=== PATIENT | male | born 1940 | race Caucasian/White ===

== ENCOUNTER → 2017-05-14 | Outpatient (CLI) | payer MEDICARE, OTHER ==
--- NOTE | 2017-05-14 11:59 | KCIC ---
MRI right shoulder without contrast dated 05/14/2017 11:00 AM Indication: Right shoulder pain for 6 months , worse with standing , long-term drug therapy limited range of motion Comparison: No comparison is available. Technique: Routine multiplanar multisequence imaging performed. No contrast administered. Findings: Intermediate T2 signal throughout the supraspinatus and infraspinatus portions of the rotator cuff. There is mild articular and bursal surface partial tearing of the anterior supraspinatus footplate, thinning cuff substance by 50 percent thickness or less. No full-thickness tear or cuff retraction. Subscapularis is intact. Mild hypertrophic change of the acromioclavicular joint. No significant undersurface spurring. No significant subacromial/subdeltoid bursal fluid collection. The acromium is type II morphology. Mild increased signal within the substance of the long head biceps tendon proximally. Extra articular portion courses within the bicipital groove. Biceps anchor intact. Mild hypertrophic change of the glenohumeral joint. Mild thinning of the glenoid articular cartilage. No full-thickness cartilage defect. The glenoid labrum is grossly intact. No displaced labral tear or para labral cyst. No joint effusion or loose body. Suprascapular and spinoglenoid notches are clear. No significant muscle edema or muscle atrophy. IMPRESSION: 1. Mild rotator cuff tendinopathy with no evidence of full-thickness tear. 2. Mild proximal biceps tendinosis. 3. Mild AC joint arthropathy. Electronically signed by: Farooq Matt MD (05/14/2017 11:56 AM) [email or web address]
== END | disposition home or self-care (01) ==
LOC: KCIC MRI 10:35
PROVIDERS: ATTEND Family Medicine
DX: M25.511 Pain in right shoulder (principal); M12.811 Other specific arthropathies, not elsewhere classified, right shoulder; Z79.899 Other long term (current) drug therapy
CPT/HCPCS: 73221

== ENCOUNTER → 2017-06-17 | Outpatient (CLI) | payer MEDICARE, OTHER ==
--- NOTE | 2017-06-17 11:02 | KCIC ---
MRI Cervical Spine Without Contrast History: Cervical radiculopathy, pain into the right shoulder and numbness in the right arm and hand Technique: Multiplanar, multi sequential noncontrast MR imaging was performed of the cervical spine. Comparison: January 08, 2016 Findings: There is some motion degradation, limits accurate evaluation of the neural foramina. Cervical vertebral body stature is maintained. There is again multilevel grade 1 anterior spondylolisthesis at C3-4, C4-5, C5-6, C6-7, C7-T1. There is [id number] degenerative disc disease C4-5, mild endplate edema at this level likely reactive/degenerative in etiology. There is mild degenerative disc disease C3-4, C5-C6, C6-7, C7-T1. There is no new abnormality of the cervical medullary junction. There is mild levoscoliosis of the cervical spine. C2-C3: Spinal canal and neural foramina are overall adequate. There are some fused posterior central osteophytes. C3-C4: There is again very shallow extrusion right paracentral region. Central canal is minimally narrowed to 9 to 10 mm. There is bilateral facet degenerative change. There is right uncovertebral degenerative change. Left neural foramen is overall adequate. There is again at least moderate narrowing of the right neural foramen. C4-C5: There is buckling of the ligamentum flavum. There is again minimal posterior bulge. Central canal is again narrowed to about 8 mm. There is bilateral facet degenerative change. There is likely at least mild right and [id number]-wl-rhkvbbrt left neural foramina compromise. C5-C6: There is buckling of the ligamentum flavum. There is a shallow posterior central protrusion. Central canal is minimally narrowed to approximately 9 mm. There is bilateral facet degenerative change greater on the left. Neural foramina are not significantly narrowed. C6-C7: Central canal is borderline 10 mm. There is facet degenerative change. Right neural foramen is adequate, likely mild narrowing of the left neural foramen. C7-T1: Spinal canal is adequate. There is uncovertebral degenerative change, also facet degenerative change. There is likely [id number] narrowing of the right neural foramen, left neural foramen not significantly narrowed. Impression: 1. There is multilevel mild abnormal alignment as stated, multilevel facet degenerative change. 2. There is mild spinal stenosis C3-4 to C5-C6. 3. There is multilevel facet and uncovertebral degenerative change, suspected multilevel neural foramina compromise as stated although limited accurate evaluation due to motion. Neural foramina compromise is likely greatest on the right at C3-C4 and C7-T1 and on the left at C4-C5. 4. There is degenerative disc disease greatest at C4-5. Electronically signed by: Dexter Schwartz MD (06/17/2017 10:59 AM) [facility]
== END | disposition home or self-care (01) ==
LOC: KCIC MRI 09:47
PROVIDERS: ATTEND Family Medicine
DX: M47.22 Other spondylosis with radiculopathy, cervical region (principal); M50.123 Cervical disc disorder at C6-C7 level with radiculopathy; M50.122 Cervical disc disorder at C5-C6 level with radiculopathy; M50.121 Cervical disc disorder at C4-C5 level with radiculopathy
CPT/HCPCS: 72141

== ENCOUNTER → 2018-05-13 | Outpatient (CLI) | payer MEDICARE, OTHER | END | disposition home or self-care (01) | LOC: KCIC MRI 12:58 | DX: M48.05 Spinal stenosis, thoracolumbar region (principal); M51.36 Other intervertebral disc degeneration, lumbar region; M43.27 Fusion of spine, lumbosacral region; M43.5X6 Other recurrent vertebral dislocation, lumbar region; M47.896 Other spondylosis, lumbar region; M25.78 Osteophyte, vertebrae | CPT/HCPCS: 72148 ==

== ENCOUNTER → 2018-06-02 | Outpatient (CLI) | payer MEDICARE, OTHER ==
--- NOTE | 2018-06-02 11:08 | KCIC ---
MR of the left shoulder Indication: Left shoulder pain. Injury over one month ago. Pain and limited range of motion. Technique: Standard multiplanar sequences are obtained. Findings: Artifact: No significant image degradation. Acromioclavicular joint: Degenerative, with mild undersurface mass effect. Rotator cuff: * Supraspinatus-infraspinatus tendon: Linear full-thickness on retracted tear of the anterior supraspinatus tendon. Measures 15 mm AP diameter. Small focus of signal void at the infraspinatus tendon attachment compatible with calcium hydroxyapatite. * Subscapularis tendon: Mild partial tear * Muscle bulk: Mild atrophy * Subacromial subdeltoid bursa: Small effusion. Fluid: No significant glenohumeral effusion. Glenohumeral cartilage: No acute defect or advanced DJD. Labrum: No evidence of detachment. Biceps tendon: Tendinosis. Bones: No lesion or acute fracture. Soft tissue: Mild fluid along the anterior shoulder, anterior to the subscapularis. This may be dissecting from the subdeltoid bursa. Impression: 1. Small linear nodular retracted full-thickness rotator cuff tear at the anterior supraspinatus tendon. Mild partial subscapularis tendon tear. 2. Mild fluid in the subdeltoid bursa. Electronically signed by: Farooq Gray MD (06/02/2018 11:05 AM) [facility]
== END | disposition home or self-care (01) ==
LOC: KCIC MRI 08:20
PROVIDERS: ATTEND Family Medicine
DX: S46.812A Strain of other muscles, fascia and tendons at shoulder and upper arm level, left arm, initial encounter (principal); M75.112 Incomplete rotator cuff tear or rupture of left shoulder, not specified as traumatic; M25.412 Effusion, left shoulder; M62.512 Muscle wasting and atrophy, not elsewhere classified, left shoulder; X58.XXXA Exposure to other specified factors, initial encounter; Y93.89 Activity, other specified; Y92.89 Other specified places as the place of occurrence of the external cause; Y99.8 Other external cause status
CPT/HCPCS: 73221

== ENCOUNTER → 2019-01-19 | Outpatient (CLI) | payer MEDICARE, OTHER ==
[~2019-01-19] MED LIST: CELE100C PO; DOXY100C2 PO; METO25TA2 PO; NAPR220C4 PO; NITR100C PO; ZOLP5TAB PO
--- NOTE | 2019-01-19 15:21 | KCIC ---
MRI of the lumbar spine without contrast 01/19/2019 CLINICAL HISTORY: Low back pain worsening with walking. History of previous lumbar spine surgery. TECHNIQUE: Unenhanced T1-weighted and T2-weighted sagittal and axial recovery sagittal images of the lumbar spine were obtained. FINDINGS: Comparison study is dated 05/13/2018. Very mild S-shaped curvature of the thoracolumbar spine is seen. Mild to moderate retrolisthesis of L2 in relation L3 is noted. The patient is post laminectomy and fusion using pedicle screws and stabilizing rods extending from L4 to S1. Bone graft material seen within the L4-5 disc space. Degenerative signal changes and loss of height are seen involving the L1-2, L2-3, L3-4 and L5-S1 discs. Degenerative signal changes are seen within the marrow surrounding all the disks of the lumbar spine. The conus medullaris is normal morphology, position, and signal characteristics. A 2.8 cm rounded high signal intensity lesion is seen involving the lower pole the left kidney on the T2-weighted images. A 1 cm rounded high signal intensity lesion is seen involving the superior pole the right kidney on the T2-weighted images. These likely represent cysts. At the T11-12 disc space is a mild generalized disc bulge. Degenerative changes are seen involving the facet joints bilaterally. These findings result in mild central spinal canal stenosis without evidence of cord impingement. No neural foraminal stenosis is seen. At the T12-L1 disc space there is a mild to moderate generalized disc bulge. Superimposed on this disc bulge is a right paracentral focal disc protrusion. This measures 3.5 mm in AP diameter. Degenerative changes are seen involving the facet joints bilaterally. There is moderate ligamentum flavum hypertrophy bilaterally. These findings when combined result in mild to moderate right greater than left central spinal canal stenosis. No neural foraminal stenosis is seen. At the L1-2 disc space there is a moderate generalized disc bulge. This is eccentric to the left. Degenerative changes are seen involving the facet joints bilaterally. There is moderate ligamentum flavum hypertrophy bilaterally. Small facet joint effusions are seen. These findings when combined result in moderate to severe left greater than right central spinal canal stenosis. Mild bilateral neural foraminal stenosis is seen. At the L2-3 disc space there is a moderate generalized disc bulge. The patient appears to be post left hemilaminotomy. Degenerative changes are seen involving the facet joints bilaterally. There is mild to moderate right ligamentum flavum hypertrophy. These findings when combined result in mild to moderate right greater than left central spinal canal stenosis. Mild to moderate right greater than left neural foraminal stenosis is seen. At the L3-4 disc space is a moderate generalized disc bulge. Degenerative changes are seen involving the facet joints bilaterally. There is moderate ligamentum flavum hypertrophy bilaterally. These findings when combined result in moderate to severe central spinal canal stenosis. Mild to moderate right greater than left neural foraminal stenosis is seen. At the L4-5 level, the patient is post left hemilaminotomy. Degenerative changes are seen involving the facet joints bilaterally. These findings do not result in significant central spinal canal or neural foraminal stenosis. At the L5-S1 disc space degenerative changes are seen involving the facet joints bilaterally. These findings do not result in significant central spinal canal or neural foraminal stenosis. Since the previous examination there has been no significant interval change. IMPRESSION: 1. Postsurgical changes are seen as outlined above. 2. The changes of degenerative disc disease are seen throughout the lower thoracic and throughout the lumbar spine. These findings result in multilevel central spinal canal and neural foraminal stenosis of varying severity as discussed above. Electronically signed by: Nnamdi aMrr MD (01/19/2019 3:17 PM) [facility]
== END | disposition home or self-care (01) ==
LOC: KCIC MRI 08:59
PROVIDERS: ATTEND Nurse Practitioner Family
DX: M51.16 Intervertebral disc disorders with radiculopathy, lumbar region (principal); M51.34 Other intervertebral disc degeneration, thoracic region; M48.05 Spinal stenosis, thoracolumbar region; M51.24 Other intervertebral disc displacement, thoracic region
CPT/HCPCS: 72148

== ENCOUNTER → 2019-02-21 | Outpatient (CLI) | payer MEDICARE, OTHER ==
[~2019-02-21] MED LIST changes: +IOHEXOL 180 MG/ML 10 ML VIAL. ONE; +methylPREDNISolone ACETATE 40 MG/ML VIAL. ONE; +methylPREDNISolone ACETATE 80 MG/ML VIAL. ONE
--- NOTE | 2019-02-22 04:41 | PAIN ---
DATE OF SERVICE: 02/21/2019 INITIAL CONSULTATION FOR PAIN CLINIC CHIEF COMPLAINT: Low back and bilateral lower extremity pain. HISTORY OF PRESENT ILLNESS: This is a 78-year-old male who presents with history of pain in the low back for many years. The patient reports it is worse over the past year or so. He has had lumbar surgery in 2007 and reports the pain was relieved fairly significantly at that time but it is returning now over the past 2 years or so, much worse over the past 1 year. The patient reports it is worse with walking, standing, change in positions, pain in the low back radiating to posterior gluteus, posterior thighs, more on the left than the right. The patient reports it is becoming more constant, more sharp and stabbing with some shooting pain in the legs, is mainly in the low back on the left side, it is getting worse at night, it wakes him from sleep at least once or twice a night, does not affect her bowel or bladder control but does affect his ability to walk. He is not using any assistive devices, however. The patient reports he has had physical therapies and chiropractic treatment. Does exercises on his own and still does those. He takes Aleve as well as Celebrex, both of which decrease the pain moderately. The physical therapy he has had in the past, has been helpful but nothing recently. He is doing exercises on his own, which is keeping things limber he feels but is not decreasing the pain significantly. The patient reports no new motor or sensory loss but significant fatigability in both the legs, especially on the left side with ambulation. The patient did have MRI scan of the lumbar spine dated 01/19/2019 showing post-surgical changes, degenerative disk disease throughout the lower thoracic and throughout the lumbar spine resulting in multilevel central spinal canal stenosis and neural foraminal stenosis of varying severity throughout the L1-L2, L2-L3, L3-L4 level and L4-L5 levels. The patient rates his disability rate from 0-10, 10 being the worst, is a 7 with family home responsibilities, 6 with recreation and 0 in all other categories social activity, occupational activities and sexual behavior, self-care and life support activities. PAST MEDICAL HISTORY: Significant for hearing loss with bilateral hearing aids, irregular heart rhythm, atrial fibrillation, history difficulty urinating with self catheterization and arthritis. PAST SURGICAL HISTORY: Previous surgeries include bilateral cataract extraction, prostate surgery and lumbar fusions with instrumentation in 2008. CURRENT MEDICATIONS: Include Aleve, Celebrex, Toprol, Ambien, doxycycline and nitrofurantoin. ALLERGIES: The patient is allergic to CIPRO and LEVAQUIN. FAMILY HISTORY: Significant for no major medical problems or conditions that he is aware of. SOCIAL HISTORY: The patient does not drink alcohol, does not smoke, does not use any illegal, illicit or recreational drugs. He is and lives with his spouse and lives locally in [place], [place]. Reports he is currently retired. REVIEW OF SYSTEMS: The patient's review of systems is positive for those items mentioned in history of present illness. All systems reviewed and otherwise negative. It is complete, full and well documented on the patient's chart. PHYSICAL EXAMINATION: VITAL SIGNS: The patient's blood pressure is 125/62, pulse is 57, respirations are 18 and temperature 97.6 degrees Fahrenheit. Height is 5 feet 8 inches and weight is 212 pounds. GENERAL: The patient is awake, alert, oriented, appropriate and very pleasant demeanor. HEENT: Shows normocephalic and atraumatic. Extraocular movements are intact and symmetrical. Oral cavity: Mucous membranes moist and pink. Dentition is intact. NECK: Shows anterior throat supple without palpable lymphadenopathy noted. Neck shows full rotational motion of the cervical spine without significant difficulty or pain reported. The patient's back shows normal appearing thoracic kyphosis and flattening of the lumbar lordotic curvature with well-healed surgical scarring, which is fairly extensive in the lumbar spine. Paraspinous muscle shows symmetrical on inspection. On palpation shows some moderate tenderness diffusely in the low lumbar distribution only. The upper, middle and lower distribution are firm but without significant tenderness. The patient has some limitation in extension but good forward flexion, right and left lateral rotation is somewhat limited, but no pain with any of these maneuvers. The patient shows no tenderness over the sacrum or sacroiliac regions or the spinous processes above the surgical scar. EXTREMITIES: The patient's lower extremities show deep tendon reflexes at 1+ in the patellar and tendo-calcaneus tendons are equal. Motor exam is strong with equal at a 4 on a scale 5 and symmetrical with dorsiflexion, extension, quadriceps and hamstring flexion both right and left. Straight leg raise noted to be negative for reproduction of any radicular symptoms. Gaenslen's and Kenroy's maneuvers are negative bilaterally as well. The patient's lower extremities are warm and dry to touch, equal in color and appearance. Peripheral pulses are 1+ posterior tibia. No peripheral edema is noted bilaterally. The patient is able to stand, stand on his toes without significant difficulty or loss of balance, walks with a normal appearing gait, slightly shuffling but does not appear to favor the right or left lower extremity significantly, not using any assistive device to ambulate. SKIN: The patient's skin shows warm and dry, good turgor. No edema. No sores or rashes throughout. IMPRESSION: 1. This is a 78-year-old male with long history of low back, bilateral lower extremity pain, worse on the left than the right in a radicular fashion. 2. MRI scan of the lumbar spine as noted. 3. Previous lumbar laminectomy with fusion for atrial fibrillation. 4. Arthritis. PLAN: Options were discussed with the patient including conservative medical management, continued physical therapy, interventional technique. He would like to pursue interventional techniques. We discussed a lumbar epidural steroid injection using description as well as anatomical models to describe the procedure. Risks were then discussed including, but not limited to bleeding, infection, possibility of epidural hematoma, subsequent neurological compromise, dural puncture, headaches, spinal cord and/or nerve damage, side effects of steroid medication and poor results regarding pain control. The patient understands and wished to proceed. The patient will return to the clinic in approximately 2 weeks for followup, was counseled as to return appointment, activity level and side effects to be aware of. DIAGNOSES: Lumbar radiculopathy with lumbar degenerative disk disease, lumbar spinal stenosis and post-lumbar laminectomy syndrome. PROCEDURE: Lumbar epidural steroid injection, translaminar approach, L5-S1 level using C-arm fluoroscopic guidance under sterile prep and drape using local anesthetic. MEDICATION INJECTED: A total of 120 mg of Depo-Medrol plus 10 mL of preservative-free normal saline and 2 mL of Isovue for contrast. CONDITION AT DISCHARGE: Stable. The patient tolerated the procedure well and had no complications. CITLALLI NGUYEN MD DR: GALILEA/garfield JOB#: [id number] / [id number] KELSEA Higgins MD
== END | disposition home or self-care (01) ==
LOC: PNCL 11:06
PROVIDERS: ATTEND Anesthesiology
DX: M51.16 Intervertebral disc disorders with radiculopathy, lumbar region (principal); M48.061 Spinal stenosis, lumbar region without neurogenic claudication; M96.1 Postlaminectomy syndrome, not elsewhere classified; M19.90 Unspecified osteoarthritis, unspecified site; I48.91 Unspecified atrial fibrillation; Z98.1 Arthrodesis status; H91.8X3 Other specified hearing loss, bilateral; Z98.42 Cataract extraction status, left eye; Z98.41 Cataract extraction status, right eye; Z96.1 Presence of intraocular lens; Z98.890 Other specified postprocedural states; Z79.899 Other long term (current) drug therapy; Z88.1 Allergy status to other antibiotic agents
CPT/HCPCS: 62323; J1030; J1040; Q9965

== ENCOUNTER → 2019-03-22 | Outpatient (CLI) | payer MEDICARE, OTHER ==
--- NOTE | 2019-03-22 11:27 | PAIN ---
DATE OF SERVICE: 03/22/2019 PROGRESS NOTE FOR PAIN CLINIC DIAGNOSES: Lumbar radiculopathy with lumbar spinal stenosis, lumbar degenerative disk disease and post-lumbar laminectomy syndrome. HISTORY OF PRESENT ILLNESS: The patient is a 78-year-old male who returns for followup status post lumbar epidural steroid injection x 1. The patient reports a 100% improvement for the first 2 weeks. He has increased his activity with greater ease and comfort, walking greater distances, traveling with greater ease and comfort. The pain is returning now but not near to his baseline. The patient reports it is in the low back and bilateral posterior gluteus and posterior thighs, mainly across the low back and more noticeable with standing, walking, still does not awaken him from sleep at night. The patient reports it is a 7 on a scale of 10 at its worst over the past week, 7 on average and 0 at its least and is 0 this morning. The patient reports no new motor or sensory deficits and no new bowel or bladder incontinence or other complaints. PHYSICAL EXAMINATION: VITAL SIGNS: The patient's blood pressure is 123/59, pulse is 71, respirations are 18 and temperature 97.6 degrees Fahrenheit. Height is 5 feet 8 inches and weight is 206 pounds. GENERAL: The patient is awake, alert, oriented, appropriate and very pleasant demeanor. HEENT: Head shows normocephalic and atraumatic. Extraocular movements intact and symmetrical. Oral cavity: Mucous membranes moist and pink. Dentition is intact. NECK: Shows anterior throat supple without palpable lymphadenopathy noted. Swallow reflex symmetrical. CHEST: Shows normal with inspection. Breath sounds clear to auscultation bilaterally. HEART: Shows S1 and S2 clear. No murmurs auscultated. ABDOMEN: Soft, nontender and nondistended. BACK: Shows spine grossly in the midline. Slight exaggeration of the thoracic kyphosis and some minor flattening of lumbar lordotic curvature. Well-healed surgical scarring noted in the lumbar distribution. Lumbar paraspinous muscle shows symmetrical on inspection, with palpation shows some moderate tenderness but only diffusely in the low lumbar distribution without radiation. The patient has good rotational motion of the lumbar spine, both laterally as well as extension and flexion without significant pain reported. EXTREMITIES: Lower extremities show deep tendon reflexes 1+ in the patellar and tendo-calcaneus tendons. Motor exam is approximately 4 on a scale of 5, but equal and symmetrical with dorsiflexion and extension bilaterally. Options were discussed with the patient. The patient's old chart was reviewed as well as his current medication regimen and updated. Current review of systems updated today as well. We will proceed with a second in the series of lumbar epidural steroid injection today with fluoroscopic guidance. Risks were again discussed including, but not limited to bleeding, infection, possibility of epidural hematoma, subsequent neurological compromise, dural puncture, headaches, spinal cord and/or nerve damage, side effects of steroid medication and poor results regarding pain control. The patient understands and wished to proceed. The patient will return to the clinic in approximately 2 weeks for followup, was counseled as to return appointment, activity level and side effects to be aware of. DIAGNOSES: Lumbar radiculopathy with lumbar degenerative disk disease, lumbar spinal stenosis and post-lumbar laminectomy syndrome. PROCEDURE: Lumbar epidural steroid injection, translaminar approach, L5-S1 level using C-arm fluoroscopic guidance under sterile prep and drape using local anesthetic. MEDICATION INJECTED: A total of 120 mg Depo-Medrol plus 10 mL of preservative-free normal saline and 2 mL of contrast. CONDITION AT DISCHARGE: Stable. The patient tolerated the procedure well and had no complications. CITLALLI NGUYEN MD DR: GALILEA/garfield JOB#: [id number] / [id number]
== END ==
LOC: PNCL 08:51
PROVIDERS: ATTEND Anesthesiology
DX: M51.16 Intervertebral disc disorders with radiculopathy, lumbar region (principal); M48.061 Spinal stenosis, lumbar region without neurogenic claudication; M96.1 Postlaminectomy syndrome, not elsewhere classified
CPT/HCPCS: 62323; J1030; J1040; Q9965

== ENCOUNTER → 2019-06-01 | Outpatient (CLI) | payer MEDICARE, OTHER ==
[~2019-06-01] MED LIST changes: -IOHEXOL 180 MG/ML 10 ML VIAL. ONE; -methylPREDNISolone ACETATE 40 MG/ML VIAL. ONE; -methylPREDNISolone ACETATE 80 MG/ML VIAL. ONE
--- NOTE | 2019-06-01 17:20 | KCIC ---
STUDY: MRI of the left shoulder without contrast INDICATION: Left shoulder injury. Pain and limited range of motion. COMPARISON: Left shoulder MRI 06/02/2018 TECHNIQUE: Multiplanar MR imaging of the left shoulder performed without intravenous or intra-articular contrast. FINDINGS: AC joint: Advanced AC joint arthrosis which has worsened from the prior with capsular hypertrophy, articular surface remodeling and surrounding marrow and soft tissue edema. Subacromial subdeltoid bursitis is also present. Rotator cuff: Large full-thickness tear of the supraspinatus extending to the supraspinatus/infraspinatus junction with tendon retraction approximately 3 cm medial to the footprint. Severely tendinopathic far anterior supraspinatus fibers which may remain only partially attached. Tendinosis and thinning of the infraspinatus with some superimposed interstitial tearing extending to the myotendinous junction. The teres minor is intact. Subscapularis tendinosis without high-grade tear. Edema tracking into the supraspinatus muscle belly in keeping with acute/subacute full-thickness tear as described. There is mild supraspinatus atrophy. Musculature bulk is otherwise maintained. Labrum: Tearing of the superior to posterior/superior labrum. Long head biceps tendon: The long head biceps tendon is not visualized within the joint space or bicipital groove compatible with complete tearing and retraction. The tendon stump is seen approximately 5.4 cm caudal to the humeral head, image 13 series 6. Cartilage: No full-thickness chondral defect seen at the medial humeral head or glenoid. The superior humeral head cartilage is not well evaluated due to adjacent fluid signal. Bones: No acute fracture. No aggressive marrow signal abnormality. Miscellaneous: Moderate volume elbow joint effusion. Fluid distention of the long head biceps tendon sheath. No axillary adenopathy. Impression: 1. Large full-thickness supraspinatus tear extending to the junctional fibers with only some thinned and severely tendinopathic fibers potentially remaining partially attached to the anterior footprint. Tendinopathy of the torn tendon stump which is displaced medially from the footprint approximately 3 cm. Mild supraspinatus atrophy as well as muscular edema in keeping with the acute/subacute nature of the tear. 2. Thinned but intact infraspinatus with some interstitial tearing extending to the myotendinous junction on a background of tendinosis. The teres minor is intact. Subscapularis tendinosis without high-grade tear. 3. Complete long head biceps tendon tear which is retracted within the bicipital groove 4. Degenerative labral tearing from posterior to posterior/superior. 5. Moderate volume shoulder joint effusion as well as findings of subacromial subdeltoid bursitis. 6. Advanced AC joint arthrosis which has worsened since the 06/02/2018 comparison. Electronically signed by: MARIA ESTHER MEADOWS MD (06/01/2019 5:17 PM) [facility]
== END | disposition home or self-care (01) ==
LOC: KCIC MRI 13:35
PROVIDERS: ATTEND Family Medicine
DX: S46.112A Strain of muscle, fascia and tendon of long head of biceps, left arm, initial encounter (principal); S46.812A Strain of other muscles, fascia and tendons at shoulder and upper arm level, left arm, initial encounter; M19.012 Primary osteoarthritis, left shoulder; M89.39 Hypertrophy of bone, multiple sites; M25.412 Effusion, left shoulder; M75.52 Bursitis of left shoulder; X58.XXXA Exposure to other specified factors, initial encounter; Y93.89 Activity, other specified; Y92.89 Other specified places as the place of occurrence of the external cause; Y99.8 Other external cause status
CPT/HCPCS: 73221

== ENCOUNTER → 2019-06-07 | Outpatient (CLI) | payer MEDICARE, OTHER ==
[~2019-06-07] MED LIST changes: +IOHEXOL 180 MG/ML 10 ML VIAL. ONE; +methylPREDNISolone ACETATE 40 MG/ML VIAL. ONE; +methylPREDNISolone ACETATE 80 MG/ML VIAL. ONE
--- NOTE | 2019-06-07 23:56 | PAIN ---
DATE OF SERVICE: 06/07/2019 PROGRESS NOTE FOR PAIN CLINIC DIAGNOSES: Lumbar radiculopathy with lumbar degenerative disk disease, lumbar spinal stenosis and post-lumbar laminectomy syndrome. HISTORY OF PRESENT ILLNESS: The patient is a 78-year-old male, who returns for followup status post lumbar epidural steroid injection x 2, most recently 03/22/2019. The patient did very well, about 80% improvement in his low back pain. The patient reports it is a little worse on the right side now than the left, but he has been very active, increasing his distance walking, lifting items, traveling with greater ease and comfort. The patient reports he feels that he "overdid it" with some of his activity, but the pain is still very manageable. The patient reports he is sleeping fairly well at night, it does not awaken him from sleep at least night, he does take Ambien for sleep as well. The patient reports his pain is in the last week has been a 9 on a scale of 10 at its worst, 7 on average, 4 at its least and is a 4 today. The patient reports it is stabbing, aching, sharp in the low back, slightly more on the right than the left at this time, but present bilaterally. The patient reports no new motor or sensory deficits, no new bowel or bladder incontinence, occasional radiation to the lower extremities now, but only very infrequently in the posterior gluteus and posterior thighs, again worse on the right. PHYSICAL EXAMINATION: VITAL SIGNS: The patient's blood pressure 132/60, pulse 67, respirations 18, temperature 97.5 degrees Fahrenheit, height is 5 feet 8 inches, weight is 212 pounds. GENERAL: The patient is awake, alert, oriented, appropriate, very pleasant demeanor. HEENT: Shows normocephalic, atraumatic. Extraocular movements are intact and symmetrical. Oral Cavity: Mucous membranes moist and pink; dentition is intact. NECK: Shows anterior throat supple without palpable lymphadenopathy noted. Swallow reflex symmetrical. CHEST: Shows normal on inspection. Breath sounds clear to auscultation bilaterally. HEART: Shows S1, S2 clear. No murmurs auscultated. ABDOMEN: Soft, nontender and nondistended. No palpable organomegaly is noted. No rebound or guarding demonstrated. BACK: Shows spine grossly in the midline, normal-appearing thoracic kyphosis, some minor flattening of lumbar lordotic curvature and well-healed surgical scarring noted. Lumbar paraspinous musculature shows symmetrical on inspection, on palpation shows some moderate tenderness throughout the upper, middle and lower distribution of paraspinous muscles bilaterally without radiation. The patient shows good rotational motion of the lumbar spine, both laterally as well as extension and flexion, without significant pain reported. EXTREMITIES: Lower extremities show deep tendon reflexes 1+ in the patellar and tendo-calcaneus tendons. Motor exam is approximately 4 on a scale of 5, but equal and symmetrical bilaterally. Peripheral pulses are 1+, posterior tibial. No peripheral edema is noted bilaterally. Options were discussed with the patient. The patient's old chart was reviewed as his current medication regimen updated. Current review of systems updated today as well. We will proceed with a third in a series of lumbar epidural steroid injection today with fluoroscopic guidance. Risks were again discussed including, but not limited to bleeding, infection, possibility of epidural hematoma, subsequent neurologic compromise, dural puncture, headaches, spinal cord and/or nerve damage, side effects of steroid medication and poor results regarding pain control. The patient understands and wished to proceed. The patient will return to the clinic in approximately 2 weeks for followup. He was counseled on return appointment, activity level and side effects to be aware of. DIAGNOSES: Lumbar radiculopathy with lumbar degenerative disk disease and lumbar spinal stenosis and post-lumbar laminectomy syndrome. PROCEDURE: Lumbar epidural steroid injection, translaminar approach, L5-S1 level, using C-arm fluoroscopic guidance under sterile prep and drape using local anesthetic. MEDICATION INJECTED: A total of 120 mg Depo-Medrol plus 10 mL of preservative-free normal saline and 2 mL of contrast. CONDITION AT DISCHARGE: Stable. The patient tolerated the procedure well, had no complications. CITLALLI NGUYEN MD DR: GALILEA/garfield JOB#: [id number] / [id number]
== END ==
LOC: PNCL 13:28
PROVIDERS: ATTEND Anesthesiology
DX: M51.16 Intervertebral disc disorders with radiculopathy, lumbar region (principal); M48.061 Spinal stenosis, lumbar region without neurogenic claudication; M96.1 Postlaminectomy syndrome, not elsewhere classified
CPT/HCPCS: 62323; J1030; J1040; Q9965

== ENCOUNTER → 2019-08-24 | Outpatient (CLI) | payer MEDICARE, OTHER ==
[~2019-08-24] MED LIST changes: +FINA1TAB3 PO
--- NOTE | 2019-08-24 10:33 | PAIN ---
DATE OF SERVICE: 08/24/2019 PROGRESS NOTE FOR PAIN CLINIC DIAGNOSES: Lumbar radiculopathy with lumbar degenerative disk disease and lumbar spinal stenosis and post-lumbar laminectomy syndrome. HISTORY OF PRESENT ILLNESS: The patient is an 79-year-old male who returns for followup status post lumbar epidural steroid injections x 3, last seen 06/07/2019. The patient did very well with about 80% improvement for the first 2 months. The patient reports the pain is returning now in the low back into the right greater than left lower extremity, but present bilaterally, posterior gluteus, posterior thighs, and posterior calves. The patient reports he has increased his distance walking, doing work activities, household activities with much greater ease and comfort, sleeping better at night, does not awaken him from sleep still. The patient reports the pain is returning now in the low back and legs as a sharp pain in the back, tight as well, on and off in intensity, radiating with activity only. The patient reports it is better with sitting or lying down. No new motor or sensory deficits, no new bowel or bladder incontinence or other complaints. The patient's pain rating is over the past week, a 9 on a scale of 10 at its worst, 7 on average, 4 at its least and is a 4 today. PHYSICAL EXAMINATION: VITAL SIGNS: The patient's blood pressure is 119/65, pulse 68, respirations 16, temperature 97.9 degrees Fahrenheit, height is 5 feet 8 inches, weight is 210 pounds. GENERAL: The patient is awake, alert, oriented, appropriate, very pleasant demeanor. HEENT: Shows normocephalic, atraumatic. Extraocular movements are intact and symmetrical. Oral cavity: Mucous membranes moist and pink. Dentition is intact. NECK: Shows anterior throat supple without palpable lymphadenopathy noted. Swallow reflex symmetrical. CHEST: Shows normal on inspection. Breath sounds are clear to auscultation bilaterally. HEART: Shows S1, S2 clear. No murmurs auscultated. ABDOMEN: Soft, nontender, nondistended. No palpable organomegaly is noted. No rebound or guarding demonstrated. BACK: Shows spine grossly in the midline. Normal appearing thoracic kyphosis and flattening of lumbar lordotic curvature with well-healed surgical scarring noted. Lumbar paraspinous muscle shows symmetrical on inspection, on palpation shows some moderate tenderness diffusely, but only diffusely without significant radiation. The patient has good rotational motion of lumbar spine, both laterally as well extension and flexion without difficulty. EXTREMITIES: Lower extremities show deep tendon reflexes 1+ in the patellar and tendo calcaneus tendons. Motor exam is approximately 4 on a scale of 5, but equal and symmetrical dorsiflexion, extension, quadriceps and hamstring flexion. Peripheral pulses are 1+ posterior tibia. No peripheral edema is noted. Options were discussed with the patient. The patient's old chart was reviewed as his current medication regimen updated. Current review of systems updated today as well. We will proceed with a first in the series of lumbar epidural steroid injection today with fluoroscopic guidance. Risks were again discussed including, but not limited to bleeding, infection, possibility of epidural hematoma, subsequent neurological compromise, dural puncture, headaches, spinal cord and/or nerve damage, side effects of steroid medication and poor results regarding pain control. The patient understands and wished to proceed. The patient will return to clinic in approximately 2 weeks for followup. He was counseled on return appointment, activity level and side effects to be aware of. DIAGNOSES: Lumbar radiculopathy with lumbar degenerative disk disease and lumbar spinal stenosis, lumbar post-laminectomy syndrome. PROCEDURE: Lumbar epidural steroid injection, translaminar approach L5-S1 level using C-arm fluoroscopic guidance under sterile prep and drape using local anesthetic. MEDICATION INJECTED: A total of 120 mg of Depo-Medrol plus 10 mL of preservative-free normal saline and 2 mL of contrast. CONDITION AT DISCHARGE: Stable. The patient tolerated the procedure well, had no complications. CITLALLI NGUYEN MD DR: GALILEA/garfield JOB#: [id number] / [id number]
== END ==
LOC: PNCL 09:07
PROVIDERS: ATTEND Anesthesiology
DX: M51.16 Intervertebral disc disorders with radiculopathy, lumbar region (principal); M48.061 Spinal stenosis, lumbar region without neurogenic claudication; M96.1 Postlaminectomy syndrome, not elsewhere classified
CPT/HCPCS: 62323; J1030; J1040; Q9965

== ENCOUNTER → 2019-12-19 | Outpatient (CLI) | payer MEDICARE, OTHER ==
--- NOTE | 2019-12-19 12:53 | PAIN ---
DATE OF SERVICE: 12/19/2019 PROGRESS NOTE FOR PAIN CLINIC DIAGNOSES: Lumbar radiculopathy with lumbar degenerative disk disease, lumbar spinal stenosis and lumbar post-laminectomy syndrome. HISTORY OF PRESENT ILLNESS: The patient is an 79-year-old male who returns for followup status post lumbar epidural steroid injection x 1, 08/24/2019. The patient had a second injection about a month ago in [place] when he has been in [place] for the winter, has now returned. The patient reports still significant pain in the low back, into the left greater than right lower extremity, posterior gluteus, posterior thigh, posterior calf, but some on the right as well. The patient reports it is aching and sharp, on and off in intensity. The patient reports it is a 9 on a scale of 10 at its worst over the past week, 7 on average, 5 at its least. The patient reports the injection in [place] was not all that effective, did not seem to decrease his pain a lot, but when he had here it was about 80% improved for about the first month. The patient reports no new changes. PHYSICAL EXAMINATION: VITAL SIGNS: The patient's blood pressure is 146/84, pulse 77, respirations 18, temperature 98.2 degrees Fahrenheit, height is 5 feet 8 inches and weight is 216 pounds. GENERAL: The patient is awake, alert, oriented, appropriate, very pleasant demeanor. HEENT: Shows normocephalic, atraumatic. Extraocular movements are intact and symmetrical. Oral cavity: Mucous membranes moist and pink. Dentition is intact. NECK: Shows anterior throat supple without palpable lymphadenopathy noted. Swallow reflex symmetrical. CHEST: Shows normal on inspection. Breath sounds are clear bilaterally. HEART: Shows S1, S2 clear. No murmurs auscultated. ABDOMEN: Soft, nontender, nondistended. No palpable organomegaly is noted. No rebound or guarding demonstrated. BACK: Shows spine grossly in the midline. Normal appearing thoracic kyphosis and some minor flattening of lumbar lordotic curvature with well-healed surgical scarring noted in the lumbar distribution. Lumbar paraspinous muscle shows symmetrical on inspection, on palpation shows some moderate tenderness diffusely, but only diffusely without significant radiation. The patient shows good rotational motion of lumbar spine, both laterally as well as extension and flexion without significant difficulty. EXTREMITIES: Lower extremities show deep tendon reflexes 1+ in the patellar and tendo calcaneus tendons. Motor exam is strong with approximately 4 on a scale of 5, but equal and symmetrical dorsiflexion, extension, quadriceps and hamstring flexion. Peripheral pulses are 1+ posterior tibia. No peripheral edema is noted bilaterally. Options were discussed with the patient. The patient's old chart was reviewed as his current medication regimen updated. Current review of systems updated today as well. We will proceed with a third in the total series of lumbar epidural steroid injection today with fluoroscopic guidance. Risks were again discussed including, but not limited to bleeding, infection, possibility of epidural hematoma, subsequent neurological compromise, dural puncture, headaches, spinal cord and/or nerve damage, side effects of steroid medication and poor results regarding pain control. The patient understands and wished to proceed. The patient will return to clinic in approximately 2 weeks for followup. He was counseled as to return appointment, activity level and side effects to be aware of. DIAGNOSES: Lumbar radiculopathy with lumbar degenerative disk disease, lumbar spinal stenosis and lumbar post-laminectomy syndrome. PROCEDURE: Lumbar epidural steroid injection, translaminar approach at L5-S1 level using C-arm fluoroscopic guidance under sterile prep and drape using local anesthetic. MEDICATION INJECTED: A total of 120 mg Depo-Medrol plus 10 mL of preservative-free normal saline and 2 mL of contrast. CONDITION AT DISCHARGE: Stable. The patient tolerated the procedure well, had no complications. CITLALLI NGUYEN MD DR: GALILEA/garfield JOB#: [id number] / [id number]
== END ==
LOC: PNCL 10:24
PROVIDERS: ATTEND Anesthesiology
DX: M51.16 Intervertebral disc disorders with radiculopathy, lumbar region (principal); M48.061 Spinal stenosis, lumbar region without neurogenic claudication; M96.1 Postlaminectomy syndrome, not elsewhere classified
CPT/HCPCS: 62323; J1030; J1040; Q9965

== ENCOUNTER → 2020-05-03 | Outpatient (CLI) | payer MEDICARE, OTHER ==
[2019-12-24 15:00] VITALS: BP 137/74
[~2020-05-03] MED LIST changes: +ASPI81TA59 PO
--- NOTE | 2020-05-03 14:40 | PAIN ---
DATE OF SERVICE: 05/03/2020 PROGRESS NOTE FOR PAIN CLINIC DIAGNOSES: Lumbar radiculopathy, lumbar degenerative disk disease, lumbar spinal stenosis and lumbar post-laminectomy syndrome. HISTORY OF PRESENT ILLNESS: The patient is an 79-year-old male who returns for followup status post lumbar epidural steroid injections x 3, most recently on 12/19/2019. The patient did very well with about 80% improvement after last injection. The patient reports the pain is returning now in the low back, especially in the right lower extremity, posterior gluteus, posterior thigh, lateral thigh, posterior calf and bilaterally in the low back. The patient reports it is a 10 on a scale of 10 at its worse for the past week, 7 on average, 3 at its least and is a 7 today. The patient reports it is sharp and stabbing, cramping, sometimes worse with walking, standing, better with sitting and lying down, generally does not awaken him from sleep often, but over the past few weeks, it has about every 5 hours. The patient reports it hurts all over. He can usually get out of bed, walk around and get back to sleep after that. The patient reports no new motor or sensory deficits. No new bowel or bladder incontinence. Did have a pacemaker in place several months ago, but has recovered from this very well and is feeling good and without any shortness of breath. PHYSICAL EXAMINATION: VITAL SIGNS: The patient's blood pressure 123/64, pulse 60, respirations 18, temperature 97.5 degrees Fahrenheit. Height is 5 feet 8 inches. Weight is 203 pounds. GENERAL: The patient is awake, alert, oriented, appropriate, very pleasant demeanor. HEENT: Shows normocephalic, atraumatic. Extraocular movements are intact and symmetrical. Oral cavity: Mucous membranes moist and pink. Dentition is intact. NECK: Shows anterior throat supple without palpable lymphadenopathy noted. Swallow reflex symmetrical. CHEST: Normal on inspection. Breath sounds are clear bilaterally. No rales, rhonchi or wheezes auscultated. HEART: Shows S1, S2 clear. Pacemaker is easily palpable in the left subclavicular region. ABDOMEN: Soft, nontender, nondistended. BACK: Shows spine grossly in the midline. Slight exaggeration of thoracic kyphosis and flattening of lumbar lordotic curvature with well-healed surgical scarring noted. Lumbar paraspinous muscle shows symmetrical with inspection, with palpation some moderate tenderness diffusely throughout the upper, middle and lower distribution of paraspinous muscles, but only diffusely without significant radiation. The patient has good rotational motion of lumbar spine, both laterally as well as extension and flexion without exacerbation of pain. EXTREMITIES: Lower extremities show deep tendon reflexes at 1+ in patellar and tendo calcaneus tendons. Motor exam is approximately 4 on a scale of 5, but equal and symmetrical with dorsiflexion, extension, quadriceps and hamstring flexion. Peripheral pulses are 1+. No peripheral edema is noted. Options were discussed with the patient. The patient's old chart was reviewed as his current medication regimen updated. Current review of systems updated today as well. We will proceed with a first in this series of lumbar epidural steroid injection using fluoroscopic guidance. Risks were discussed including but not limited to bleeding, infection, possibility of epidural hematoma, subsequent neurological compromise, dural puncture, headaches, spinal cord and/or nerve damage, side effects of steroid medication and poor results regarding pain control. The patient understands and wished to proceed. The patient will return to clinic in approximately 2 weeks for followup, was counseled on return appointment, activity level and side effects to be aware of. DIAGNOSES: Lumbar radiculopathy, lumbar degenerative disk disease, lumbar spinal stenosis and lumbar post-laminectomy syndrome. PROCEDURE: Lumbar epidural steroid injection, translaminar approach L5-S1 level using C-arm fluoroscopic guidance under sterile prep and drape using local anesthetic. MEDICATION INJECTED: A total of 120 mg Depo-Medrol plus 10 mL of preservative-free normal saline and 2 mL of contrast. CONDITION AT DISCHARGE: Stable. The patient tolerated the procedure well, had no complications. CITLALLI NGUYEN MD DR: GALILEA/garfield JOB#: [id number] / [id number]
== END ==
LOC: PNCL 09:10
PROVIDERS: ATTEND Anesthesiology
DX: M51.16 Intervertebral disc disorders with radiculopathy, lumbar region (principal); M48.061 Spinal stenosis, lumbar region without neurogenic claudication; M96.1 Postlaminectomy syndrome, not elsewhere classified
CPT/HCPCS: 62323; J1030; J1040; Q9965

== ENCOUNTER → 2020-05-15 | Outpatient (CLI) | payer MEDICARE, OTHER ==
[2019-12-24 15:00] VITALS: BP 137/74
--- NOTE | 2020-05-15 09:43 | PDOC ---
Date of Service: DATE: 05/15/20 TIME: 09:37 Progress Note: Progress note for patient Janes Anderson: Mr. Anderson, a 79-year-old male returns for follow-up status post lumbar epidural steroid injection x1. Patient reports about 100% improvement for several days following the injection. After that, the pain returned and is in the low back and right lower extremity radiating to the right posterior gluteus posterior thigh lateral thigh as a sharp cramping and stabbing in quality on and off in intensity worse with activity standing walking changing positions. Patient reports a 9 on scale of 10 at its worst 8 on average and a 6 at its least. Patient reports no new motor or sensory deficits no new bowel or bladder incontinence or other complaints. Patient reports is worse with walking standing better with sitting or laying down occasionally wakes him from sleep but only very rarely. On physical exam today patient blood pressure is 124/67 pulse is 67 respirations are 18 temperature is 97.7 F height is 5 foot 8 inches weight is 2 0 0 pounds Patient is awake alert oriented appropriate very pleasant in [facility], H EENT exam shows normocephalic and atraumatic, extraocular movements are intact and symmetrical patient wearing eyeglasses, oral cavity shows mucous membranes moist and pink dentition is intact. Neck shows anterior throat supple without palp lymphadenopathy noted swallow reflexes symmetrical. Chest shows normal with inspection breath sounds are clear to auscultation bilaterally no rales rhonchi or wheezes auscultated. Heart shows S1-S2 clear no murmurs auscultated. Abdomen is soft nontender nondistended no palpable organomegaly is noted no rebound or guarding demonstrated. Patient's back shows midline normal- appearing thoracic emphasis and flattening of the lumbar lordotic curves with well-healed surgical scarring. With palpation paraspinous musculature shows moderate tenderness diffusely bilaterally in the upper middle and lower distribution the paraspinous muscles. Patient shows good range of motion however without significant pain with lateral rotation as well as extension and flexion. Lower extremities show deep tendon reflexes at 1+ in the patellar and tendo Achilles tendons and are symmetrical motor exam is 4 to scale 5 and equal and symmetrical with dorsiflexion extension quadricep and hamstring flexion bilaterally. Peripheral pulses are 1+ posterior tibial no peripheral edema is noted bilaterally. Options were discussed with the patient, patient's old chart was reviewed his current medication regimen updated current review of systems updated today as well Plan: Options were discussed with the patient including conservative medical therapy, physical therapies and repeat lumbar epidural steroid injection. Patient would like to proceed with a second lumbar epidural steroid injections today risks are discussed including but not limited to bleeding infection possibility of epidural hematoma and subsequent neurological compromise dural puncture headache spinal cord and nerve damage side effects of steroid medication and poor results regarding pain control. Patient understands and wishes to proceed. Return to clinic in approximately 2 weeks for follow-up was counseled as to return appointment activity level and side effects to be aware of. Procedure is lumbar epidural steroid injection under local anesthetic using sterile prep and drape at the L5-S1 level using C-arm fluoroscopic guidance in both AP and lateral views medications injected is 120 mg Depo-Medrol + 10 mL preservative-free normal saline and 2 mL Isovue for contrast- condition at discharge is stable patient tolerated procedure well had no complications. Justicifation of Admission Dx: Justifications for Admission: Justification of Admission Dx: Comment: (Outpatient) CITLALLI NGUYEN MD May 15, 2020 09:43
== END | disposition home or self-care (01) ==
LOC: PNCL 08:53
PROVIDERS: ATTEND Anesthesiology
DX: M54.5 Low back pain (principal); Z88.8 Allergy status to other drugs, medicaments and biological substances; Z79.899 Other long term (current) drug therapy
CPT/HCPCS: 62323; J1030; J1040; Q9965

== ENCOUNTER → 2020-06-13 | Outpatient (CLI) | payer MEDICARE, OTHER ==
[2019-12-24 15:00] VITALS: BP 137/74
[~2020-06-13] MED LIST changes: -IOHEXOL 180 MG/ML 10 ML VIAL. ONE; -methylPREDNISolone ACETATE 40 MG/ML VIAL. ONE; -methylPREDNISolone ACETATE 80 MG/ML VIAL. ONE
--- NOTE | 2020-06-13 13:31 | NUR ---
PT MONITORED by RN during MRI. pt tolerated procedure well. VSS . [employer] Rep at bedside
--- NOTE | 2020-06-13 15:03 | RAD ---
MRI Lumbar Spine without contrast History: Low back pain, right leg radiculopathy Technique: Multiplanar, multi sequential noncontrast MR imaging was performed of the lumbar spine. Comparison: January 19, 2019 Findings: There is again posterolateral fusion hardware with bilateral pedicle screws at L4, L5, and S1 attached to vertical rods. Exam does not accurately evaluate integrity of hardware. This again interbody graft L4-5 and L5-S1 interbody fusion. There is again advanced degenerative disc disease at L1-L2 and L2-3, minimally at L3-4. There is again mild posterior subluxation of L1 relative to L2 and L2 relative to L3, minimal grade 1 anterior spondylolisthesis at L4-5. Conus terminates at L1. There is nonspecific edema of the posterior subcutaneous fat of the lower back. Not fully included, there is a T2 hyperintense lesion of the visualized right kidney at least 3.5 cm, statistically more likely a cyst, not fully seen. There is also 2.8 cm likely cyst of the left kidney. Not included on the axial images, facet degenerative change contributes to likely [id number] narrowing of the left T11-12 neural foramen. T12-L1: There is again minimal disc osteophyte complex. There is mild buckling of the ligamentum flavum. Spinal canal is adequate. Neural foramina are adequate. L1-L2: There is again disc osteophyte complex. There is mild buckling of the ligamentum flavum and mild facet hypertrophic change, minimal fluid in the left facet articulation. There is mild to moderate left and moderate right neural foramina compromise. There is again mild narrowing of the far lateral recesses greater on the left. L2-L3: There is again disc osteophyte complex superimposed on the posteriorly subluxed superior L2 vertebral body margin. There is left laminectomy defect. There is right facet hypertrophic change and mild buckling of the right ligamentum flavum. There is again mild narrowing of the far right lateral recess. There is again moderate to severe neural foramina compromise bilaterally due to disc osteophyte complex and facets. L3-L4: There is moderate facet hypertrophic change and buckling of the ligamentum flavum. There is moderate to severe narrowing of the far lateral recesses bilaterally with contact of the descending L4 nerve roots. There is limited preserved central subarachnoid space, moderate narrowing of the central canal. There is moderate to severe right and at least moderate left neural foramina compromise by disc osteophyte complex and facets. L4-L5: There is again left laminectomy defect. Spinal canal is overall adequate. There is likely mild narrowing of the left neural foramen from posteriorly although poorly characterized due to artifact from hardware and motion, right neural foramen likely adequate. L5-S1: Spinal canal is adequate. There is right facet degenerative change, also osteophytes in the inferior right neural foramen contributing to severe narrowing of the right neural foramen with contact exiting right L5 nerve root, likely minimal narrowing on the left. Impression: 1. There is moderate to severe lateral recess stenosis bilaterally at L3-4 with contact of the descending L4 nerve roots, moderate central canal stenosis at this level. There is mild right lateral recess stenosis at L2-3, also mild narrowing of the far lateral recesses greater on the left at L1-2. 2. There is advanced degenerative disc disease L1-L2 and L2-3. There is interbody fusion L5-S1 and interbody graft at L4-5, posterolateral fusion hardware L4-S1. 3. There is multilevel lumbar neural foramina compromise, more significant narrowing bilaterally at L2-3, right greater than left at L3-4, and on the right at L5-S1. 4. There is multilevel abnormal alignment as stated. 5. There are T2 hyperintense foci of the bilateral kidneys, statistically more likely cysts, not fully evaluated. Electronically signed by: Dexter Schwartz MD (06/13/2020 3:00 PM) [id number]
== END | disposition home or self-care (01) ==
LOC: MRI 12:29
PROVIDERS: ATTEND Family Medicine
DX: M48.061 Spinal stenosis, lumbar region without neurogenic claudication (principal); M47.27 Other spondylosis with radiculopathy, lumbosacral region; M25.78 Osteophyte, vertebrae; M43.16 Spondylolisthesis, lumbar region; Z98.1 Arthrodesis status
CPT/HCPCS: 72148

== ENCOUNTER → 2020-06-14 | Outpatient (CLI) | payer MEDICARE, OTHER ==
[2019-12-24 15:00] VITALS: BP 137/74
[~2020-06-14] MED LIST changes: +IOHEXOL 180 MG/ML 10 ML VIAL. ONE; +methylPREDNISolone ACETATE 40 MG/ML VIAL. ONE; +methylPREDNISolone ACETATE 80 MG/ML VIAL. ONE
--- NOTE | 2020-06-14 08:52 | PDOC ---
Progress Note - Pain Clinic Date of Service: DOS: DATE: 06/14/20 TIME: 08:49 Diagnosis: Dx: Lumbar radiculopathy with lumbar degenerative disc disease lumbar spinal stenosis and post lumbar laminectomy syndrome History or Present Illness: HPI: 79-year-old male returns follow-up status post lumbar epidural steroid injections x2. Patient reports about 80 to 90% improvement after the last injection only for about a week or so the pain began to return in fairly quickly low back and right lower extremity in the posterior gluteus posterior thigh posterior calf patient reports is been worse with walking standing changing positions better with sitting or laying down initially he was doing much better with walking distances doing household activities greater ease and comfort sleeping better at night patient ports pain still does not awaken him from sleep much better with sitting or laying down. Patient describes the pain is aching and cramping stabbing sharp and shooting in the lower back and right lower extremity as well as severe at times on and off in intensity. Patient reports no new motor or sensory deficits no new bowel or bladder incontinence or other complaints. Physical Exam: VS: Blood pressure is 128/77 pulse 68 respirations 16 temperature 97.7 F height is 5 feet 8 inches weight is 207 pounds PE: PHYSICAL EXAMINATION: GENERAL: The patient is awake, alert, oriented, appropriate, very pleasant demeanor HEENT: Shows normocephalic, atraumatic. Extraocular movements are intact and symmetrical. Oral cavity: Mucous membranes moist and pink. NECK: Shows anterior throat supple without palpable lymphadenopathy noted. Swallow reflex symmetrical. CHEST: Shows normal on inspection. Breath sounds are clear bilaterally. HEART: Shows S1, S2 clear. No murmurs auscultated. ABDOMEN: Soft, nontender, nondistended. No palpable organomegaly is noted. No rebound or guarding demonstrated. BACK: Shows spine grossly in the midline. Normal-appearing cervical lordotic curvature. There is slightly increased thoracic kyphosis, some minor flattening of the lumbar lordotic curvature. Lumbar paraspinous muscles show symmetrical on inspection, on palpation shows some moderate tenderness diffusely throughout the upper, middle and lower distribution of the paraspinous muscles bilaterally without specific trigger points, without radiation of pain. The patient has good rotational motion of the lumbar spine, both laterally as well as extension and flexion without significant difficulty. No tenderness over the spinous processes, sacrum or sacroiliac regions. EXTREMITIES: Lower extremities show deep tendon reflexes 1+ in the patellar and tendo calcaneus tendons. Motor exam is 4 on a scale of 5 with right dorsiflexion, extension, quadriceps and hamstring flexion and 4/5 on the left. Peripheral pulses are 1+ posterior tibial. No peripheral edema is noted bilaterally. Lower extremities are warm and dry to touch, equal in color and appearance. SKIN: Shows warm and dry, good turgor. No edema. No sores, rashes or bruising throughout. Procedure: Procedure: Options were discussed with the patient. Patient will chart reviewed his current medication regimen updated current review of systems updated today as well. We will proceed with a third in the series lumbar epidural steroid injection today with fluoroscopic guidance. Risks were discussed including but not limited to: Bleeding, infection, possibility of epidural hematoma and subsequent neurological compromise, dural puncture, headaches, spinal cord and/or nerve damage, side effects of steroid medication, and poor results regarding pain control. Patient understands wished to proceed. Patient return to clinic in possibly 2 weeks for follow-up was counseled as to return appointment activity level and side effects to be aware of. Medication Injected: Med Injected: Procedure is lumbar epidural steroid injection under local anesthetic using sterile prep and drape at the L5-S1 level using C-arm fluoroscopic guidance in both AP and lateral views medications injected is 120 mg Depo-Medrol + 10 mL preservative-free normal saline and 2 mL contrast- condition at discharge is stable patient tolerated procedure well had no complications. Condition at Discharge: Condition at Discharge: Condition at discharge stable patient hello procedure well had no complications. CITLALLI NGUYEN MD Jun 14, 2020 08:52
== END | disposition home or self-care (01) ==
LOC: PNCL 08:24
PROVIDERS: ATTEND Anesthesiology
DX: M51.16 Intervertebral disc disorders with radiculopathy, lumbar region (principal); M48.061 Spinal stenosis, lumbar region without neurogenic claudication; Z88.8 Allergy status to other drugs, medicaments and biological substances; Z79.82 Long term (current) use of aspirin; Z79.899 Other long term (current) drug therapy
CPT/HCPCS: 62323; J1030; J1040; Q9965

== ENCOUNTER → 2020-08-27 | Outpatient (CLI) | payer MEDICARE, OTHER ==
[2019-12-24 15:00] VITALS: BP 137/74
[~2020-08-27] MED LIST changes: -IOHEXOL 180 MG/ML 10 ML VIAL. ONE; -methylPREDNISolone ACETATE 40 MG/ML VIAL. ONE; -methylPREDNISolone ACETATE 80 MG/ML VIAL. ONE
[2020-08-27 14:12] LABS: BASO # 0.1 x10^3/uL (0.0-0.2); BASO % 1 % (0-3); EOS # 0.4 x10^3/uL (0.0-0.7); EOS % 6 % (0-3); HEMATOCRIT 38.2 % (39.0-53.0); HEMOGLOBIN 13.3 g/dL (13.0-17.5); LYMPH # 2.5 x10^3/uL (1.0-4.8); LYMPH % 32 % (24-48); MEAN CORPUSCULAR HEMOGLOBIN 33 pg (25-35); MEAN CORPUSCULAR HGB CONC 35 g/dL (31-37); MEAN CORPUSCULAR VOLUME 95 fL (79-100); MONO # 0.9 x10^3/uL (0.0-1.1); MONO % 12 % (0-9); NEUT # 3.8 x10^3/uL (1.8-7.7); NEUT % 49 % (31-73); PLATELET COUNT 245 x10^3/uL (140-400); RED BLOOD COUNT 4.02 x10^6/uL (4.30-5.70); RED CELL DISTRIBUTION WIDTH 12.7 % (11.5-14.5); WHITE BLOOD COUNT 7.7 x10^3/uL (4.0-11.0)
[2020-08-27 14:24] LABS: ALBUMIN 3.2 g/dL (3.4-5.0); ALBUMIN/GLOBULIN RATIO 0.9 (1.0-1.7); CALCIUM 9.2 mg/dL (8.5-10.1); CREATININE 0.9 mg/dL (0.7-1.3); POTASSIUM 4.1 mmol/L (3.5-5.1); TOTAL BILIRUBIN 0.3 mg/dL (0.2-1.0); TOTAL PROTEIN 6.7 g/dL (6.4-8.2)
--- NOTE | 2020-08-29 09:44 | HP ---
ADMIT DATE: DATE OF SURGERY: 08/30/2020. HISTORY OF PRESENT ILLNESS: The patient is a pleasant 80-year-old who has problems with low back pain and current pain which radiates primarily into his right hip and leg. He says there is a small amount of pain in the left leg, but is not significant compared to the right. He rates his pain as an 8/10. Standing, walking, lifting increases pain. Sitting helps. He takes Aleve and recently has been taking prednisone. He had epidural steroid injections and says that the last 3 did not help him. He uses a cane to protect him from falling. PAST MEDICAL HISTORY: Arthritis, heart disease, asthma. PAST SURGICAL HISTORY: TURP in 1991 and Achilles tendon repair in 1994, A lumbar fusion by Willian Cuenca MD, in 2007. FAMILY HISTORY: Spine problems. SOCIAL HISTORY: He is . Retired. Exercises daily. Denies substance abuse or tobacco use. ALLERGIES: CIPRO AND LEVAQUIN HOSPITALIZATION: Due to sepsis from a UTI in 2013. CURRENT MEDICATIONS: Prednisone, metoprolol, doxycycline, Ambien, Celebrex, multivitamin, Advil, nitrofurantoin, Aleve, and iron. REVIEW OF SYSTEMS: A 12-point review of systems was obtained and is noncontributory except for that mentioned above. PHYSICAL EXAMINATION: NEUROSURGERY EXAMINATION: GENERAL APPEARANCE: Alert, pleasant, no acute distress. HEAD: Normocephalic and atraumatic. SKIN: Warm and dry, well-healed lumbar incision. MUSCULOSKELETAL: Lumbar paraspinal muscle bulk is normal, restricted range of motion of the lumbar spine, [id number] tenderness of the lower lumbar spine with palpation, normal range of motion of the lower extremities bilaterally. EXTREMITIES: No clubbing, cyanosis, or edema. NEUROLOGIC: Alert and oriented x 3, normal recent and remote memory, strength 5/5 in bilateral lower extremities, sensory is intact to light touch in lower extremities bilaterally. Reflexes are present and symmetric in bilateral lower extremities, negative straight leg raising bilaterally, ambulates with a cane. IMAGING: Reviewed. I reviewed a recent lumbar MRI scan. On that study, there is a fusion with instrumentation at L4 to the sacrum. At L3-L4, he has developed central canal stenosis of moderate degree plus moderately severe right lateral recess and severe right-sided neural foraminal narrowing. ASSESSMENT: 1. Spinal stenosis, lumbar region with neurogenic claudication. 2. Radiculopathy, lumbar region. 3. Arthrodesis status. 4. Low back pain. PLAN: At this point, I feel surgery should be considered. My recommendation would be that the hardware on the right at L4, L5 and S1 be removed if necessary. I would perform a direct laminectomy at L3-L4 from the right side and decompress the dura and nerve roots from that approach. I discussed with him the surgery and the risks involved as well as expected postoperative course. He understands and he would like to proceed. We will make the arrangements. WILLIAN CUENCA MD DR: MAGGY/[place] JOB#: [id number] / [id number]
== END ==
LOC: SURGPAT 13:21
PROVIDERS: ATTEND Neurological Surgery
DX: Z01.812 Encounter for preprocedural laboratory examination (principal); M54.16 Radiculopathy, lumbar region; Z20.828 Contact with and (suspected) exposure to other viral communicable diseases
CPT/HCPCS: 80053; 85025; 87641; U0003

== ENCOUNTER → 2021-05-20 | Outpatient (CLI) | payer MEDICARE, OTHER ==
[2020-08-31 10:37] VITALS: BP 119/64
[~2021-05-20] MED LIST changes: +BUPIVACAINE MPF 0.25% 10 ML VIAL. ONE; +DOCU-148 PO; -DOXY100C2 PO; +DOXY100C3 PO; +HYDR-2761 PO; +IOHEXOL 180 MG/ML 10 ML VIAL. ONE; +methylPREDNISolone ACETATE 80 MG/ML VIAL. ONE
--- NOTE | 2021-05-20 10:37 | PDOC4 ---
Procedure Note: ICD 10 Code: ICD 10 Code: M 46.1 Procedure Note: Patient was consented for left sacroiliac joint injection with fluoroscopic guidance. Risk were discussed including but not limited to bleeding infection possibility of intravascular injection sequelae spread local anesthetic numbness side effects steroid medications post arthroscopy and portals regarding pain control. Patient understands wished to proceed. Under sterile prep and drape using C-arm fluoroscopic guidance, left sacroiliac joint injected using 3 cc 0.25% bupivacaine +80 mg Depo-Medrol +2 cc contrast. Condition at discharge is stable, patient tolerated procedure well and had no complications. CITLALLI NGUYEN MD May 20, 2021 10:37
--- NOTE | 2021-05-20 10:37 | PDOC ---
Progress Note - Pain Clinic Date of Service: DOS: DATE: 05/20/21 TIME: 10:32 Diagnosis: Dx: Lumbar radiculopathy with lumbar degenerative disease lumbar spinal stenosis lumbar postlaminectomy syndrome Left sacroiliitis History or Present Illness: HPI: 80-year-old male returns for follow-up status post lumbar epidural steroid injections last seen June 2020. Patient has since had lumbar decompressive surgery with good resolution of pain in his right leg but his main complaint now is a new finding of left posterior hip and left lower extremity pain patient reports is getting worse over the past month or so not result of any specific injury or accident that he is aware of is getting worse in the posterior "hip" radiating to the left posterior calf as well patient reports a 10 on scale 10 is worse over the past week 8 on average 6 its least is a 7 today patient reports that sharp and tight in the calf stabbing burning on and off in intensity worse with walking standing changing positions better with sitting or laying down ge nerally does not awaken her from sleep at night. Patient reports it is worse with getting up from a chair also sitting from a standing position. Patient reports that his surgery went very well and seems to have good control over the right lower extremity pain which is resolved but the left hip and left lower extremity significantly painful. Patient reports no new bowel or bladder incontinence Physical Exam: VS: Blood pressure is 147/95 pulse 72 respirations 18 temperature 97.6 F height is 5 feet 8 inches weight is 202 pounds PE: PHYSICAL EXAMINATION: GENERAL: The patient is awake, alert, oriented, appropriate, very pleasant demeanor HEENT: Shows normocephalic, atraumatic. Extraocular movements are intact and symmetrical. Oral cavity: Mucous membranes moist and pink. NECK: Shows anterior throat supple without palpable lymphadenopathy noted. Swallow reflex symmetrical. CHEST: Shows normal on inspection. Breath sounds are clear bilaterally, distant but no rales rhonchi or wheezes. HEART: Shows S1, S2 clear. No murmurs auscultated. ABDOMEN: Soft, nontender, nondistended, obese. No palpable organomegaly is noted. BACK: Shows spine grossly in the midline. Normal-appearing cervical lordotic curvature. There is slightly increased thoracic kyphosis, some minor flattening of the lumbar lordotic curvature. Well-healed surgical scarring in the lumbar distribution is noted. Lumbar paraspinous muscles show symmetrical on inspection, on palpation shows some moderate tenderness diffusely throughout the upper, middle and lower distribution of the paraspinous muscles without specific trigger points, without radiation of pain. The patient has good rotational motion of the lumbar spine, both laterally as well as extension and flexion without significant difficulty. Patient shows significant tenderness with palpation of the posterior superior iliac spine on the left but not the right and into the sacroiliac joint itself with direct palpation without radiation. EXTREMITIES: Lower extremities show deep tendon reflexes 1+ in the patellar and tendo calcaneus tendons. Motor exam is 4 on a scale of 5 with right dorsiflexion, extension, quadriceps and hamstring flexion and 4/5 on the left. Peripheral pulses are 1 posterior tibial. No peripheral edema is noted bilaterally. Lower extremities are warm and dry to touch, equal in color and appearance. Gaenslen's maneuver is positive on the left with posterior displacement of the left lower extremity and external rotation right side is negative. SKIN: Shows warm and dry, good turgor. No edema. No sores, rashes or bruising throughout. Procedure: Procedure: Options were discussed with the patient. Patient's old chart reviewed his current medication regimen updated current review of systems updated today as well. We will proceed with a left sacroiliac joint injection today with fluoroscopic guidance. Risk were discussed including but not limited to bleeding infection possibility of intravascular injection sequelae spread local anesthetic numbness side effects of steroid medications post arthroscopy and portals regarding pain control. Patient understands wished to proceed. Patient return to clinic in approximate 2 weeks for follow-up, was counseled as to return appointment activity level and side effects to be aware of. Medication Injected: Med Injected: Under sterile prep and drape using C-arm fluoroscopic guidance, left sacroiliac joint injected using 3 cc 0.25% bupivacaine +80 mg Depo-Medrol +2 cc contrast. Condition at discharge is stable, patient tolerated procedure well and had no complications. Condition at Discharge: Condition at Discharge: Condition at discharge stable, patient already procedure well and had no complications. CITLALLI NGUYEN MD May 20, 2021 10:36
== END | disposition home or self-care (01) ==
LOC: PNCL 09:54
PROVIDERS: ATTEND Anesthesiology
DX: M46.1 Sacroiliitis, not elsewhere classified (principal); M51.16 Intervertebral disc disorders with radiculopathy, lumbar region; M48.061 Spinal stenosis, lumbar region without neurogenic claudication; M96.1 Postlaminectomy syndrome, not elsewhere classified; I48.91 Unspecified atrial fibrillation; J45.909 Unspecified asthma, uncomplicated; M19.90 Unspecified osteoarthritis, unspecified site; Z87.440 Personal history of urinary (tract) infections; Z79.899 Other long term (current) drug therapy; Z98.890 Other specified postprocedural states; Z88.1 Allergy status to other antibiotic agents; Z88.8 Allergy status to other drugs, medicaments and biological substances
CPT/HCPCS: G0260; J1040; J3490; Q9965; 27096

== ENCOUNTER → 2021-06-03 | Outpatient (CLI) | payer MEDICARE, OTHER ==
[2020-08-31 10:37] VITALS: BP 119/64
--- NOTE | 2021-06-03 11:12 | PDOC4 ---
Procedure Note: ICD 10 Code: ICD 10 Code: M4 6.1 Procedure Note: Patient was consented for left sacroiliac joint injection with fluoroscopic guidance. Risk were discussed including but not limited to bleeding infection possibility of intravascular injection sequelae spread of local anesthetic numbness side effects of steroid medication and poor results regarding pain control. Patient understands wished to proceed. Under sterile prep and drape using C-arm fluoroscopic guidance, left sacroiliac joint injected using 3 cc 0.25% bupivacaine +80 mg Depo-Medrol +2 cc contrast. Condition at discharge is stable, patient tolerated procedure well and had no complications. CITLALLI NGUYEN MD Jun 03, 2021 11:12
--- NOTE | 2021-06-03 11:12 | PDOC ---
Progress Note - Pain Clinic Date of Service: DOS: DATE: 06/03/21 TIME: 11:08 Diagnosis: Dx: Lumbar radiculopathy with lumbar degenerative disease lumbar spinal stenosis and lumbar postlaminectomy syndrome Left sacroiliitis History or Present Illness: HPI: 80-year-old male returns in follow-up status post left sacroiliac joint injection May 20, 2021 patient reports he did very well about 75% improved initially now about 60% improved but still significant patient reports has been increase activities greater ease and comfort walking greater distances sleeping much better at night still pain in the left posterior hip and radiating to the left lower extremity but much improved patient reports is a 9 on scale 10 is worse over the past week 8 on average 6 its least is a 6 today patient reports on and off with activity some numbness sensation in the leg muscle aching sharp tight alternating in the low back on the left side. Patient reports no bowel or bladder incontinence no motor or sensory deficit. Patient reports new medicati on change as we made recommendation after his last visit, has been taking Tylenol 650 before going to bed which does help him sleep through the night and decreasing the pain even into the next morning. Patient no longer taking the Aleve as the Tylenol extra strength is doing better. Physical Exam: VS: Blood pressure is 142/82 pulse 74 respirations 18 temperature 97.2 F height 5 feet 8 inches weight is 202 pounds PE: PHYSICAL EXAMINATION: GENERAL: The patient is awake, alert, oriented, appropriate, very pleasant in demeanor HEENT: Shows normocephalic, atraumatic. Extraocular movements are intact and symmetrical. Oral cavity: Mucous membranes moist and pink. NECK: Shows anterior throat supple without palpable lymphadenopathy noted. Swallow reflex symmetrical. CHEST: Shows normal on inspection. Breath sounds are clear bilaterally, no rales or rhonchi. HEART: Shows S1, S2 clear. No murmurs auscultated. ABDOMEN: Soft, nontender, nondistended, obese. No palpable organomegaly is noted. BACK: Shows spine grossly in the midline. Normal-appearing cervical lordotic curvature. There is slightly increased thoracic kyphosis, some minor flattening of the lumbar lordotic curvature. Lumbar paraspinous muscles show symmetrical on inspection, on palpation shows some moderate tenderness diffusely throughout the upper, middle and lower distribution of the paraspinous muscles without specific trigger points, without radiation of pain. The patient has good rotat ional motion of the lumbar spine, both laterally as well as extension and flexion without significant difficulty. No tenderness over the spinous processes but significant tenderness over the left posterior superior iliac spine, and the superior and mid sacroiliac joint on the left only. EXTREMITIES: Lower extremities show deep tendon reflexes 1+ in the patellar and tendo calcaneus tendons. Motor exam is 4 on a scale of 5 with right dorsiflexion, extension, quadriceps and hamstring flexion and 4/5 on the left. Peripheral pulses are 1+ posterior tibial. No peripheral edema is noted bilaterally. Lower extremities are warm and dry to touch, equal in color and appearance. Patient has positive Gaenslen's maneuver on the left only, right side is negative. SKIN: Shows warm and dry, good turgor. No edema. No sores, rashes or bruising throughout. Procedure: Procedure: Options were discussed with the patient. Patient's old chart was reviewed his his current medication regimen updated current review of systems updated today as well. We will proceed with a left sacroiliac joint injection today with fluoroscopic guidance. Risk were discussed including but not limited to bleeding infection possibility of intravascular ejection sequelae spread local anesthetic numbness side effects steroid medication exposure fluoroscopy and poor results regarding pain control. Patient understands wished to proceed. Patient return to clinic in approximate 2 weeks for follow-up, was counseled as to return appointment activity level and side effects to be aware of. Medication Injected: Med Injected: Under sterile prep and drape using C-arm fluoroscopic guidance, left sacroiliac joint injected using 3 cc 0.25% bupivacaine +80 mg Depo-Medrol +2 cc contrast. Condition at discharge is stable, patient tolerated procedure well and had no complications. Condition at Discharge: Condition at Discharge: Condition at discharge is stable, patient tolerated the procedure well and had no complications. CITLALLI NGUYEN MD Jun 03, 2021 11:12
== END | disposition home or self-care (01) ==
LOC: PNCL 10:28
PROVIDERS: ATTEND Anesthesiology
DX: M46.1 Sacroiliitis, not elsewhere classified (principal); M51.16 Intervertebral disc disorders with radiculopathy, lumbar region; M48.061 Spinal stenosis, lumbar region without neurogenic claudication; M96.1 Postlaminectomy syndrome, not elsewhere classified; I48.91 Unspecified atrial fibrillation; J45.909 Unspecified asthma, uncomplicated; K21.9 Gastro-esophageal reflux disease without esophagitis; M19.90 Unspecified osteoarthritis, unspecified site; Z79.82 Long term (current) use of aspirin; Z79.899 Other long term (current) drug therapy; Z98.890 Other specified postprocedural states; Z88.1 Allergy status to other antibiotic agents; Z88.8 Allergy status to other drugs, medicaments and biological substances; Z82.49 Family history of ischemic heart disease and other diseases of the circulatory system
CPT/HCPCS: G0260; J1040; J3490; Q9965; 27096

== ENCOUNTER → 2021-08-08 | Outpatient (CLI) | payer MEDICARE, OTHER ==
[2020-08-31 10:37] VITALS: BP 119/64
--- NOTE | 2021-08-08 13:38 | PDOC ---
Progress Note - Pain Clinic Date of Service: DOS: DATE: 08/08/21 TIME: 13:33 Diagnosis: Dx: Lumbar radiculopathy with lumbar degenerative disc disease and lumbar spinal stenosis with lumbar postlaminectomy syndrome Left sacroiliitis Left shoulder joint pain with osteoarthritis History or Present Illness: HPI: 81-year-old male returns for follow-up status post a left sacroiliac joint injection June 03, 2021. Patient reports he did very well about 75% improvement overall in the low back and the left hip patient reports his chief complaint today however is left shoulder joint pain patient reports he has had pain in the shoulder for many years and has seen his orthopedist who diagnosed him with osteoarthritis. Patient reports is getting worse especially when he is trying to sleep on his left side at night has good mobility of the shoulder but significant pain in the anterior superior and posterior aspect of the shoulder itself with mobility lifting especially with lifting items and pulling them towards him patient reports is a 10 on scale 10 is worse over the past week 8 on average 0 its least visit 8 today patient scribes as aching and sharp unbearable at times. Patient reports no new motor or sensory deficits no bowel or bladder incontinence and his low back is doing quite a bit better than it was previously after his sacroiliac joint injection. Physical Exam: VS: Blood pressure is 134/77 pulse 72 respirations 18 temperature 97.5 F height 5 feet 8 inches weight is 205 PE: PHYSICAL EXAMINATION: GENERAL: The patient is awake, alert, oriented, appropriate, very pleasant in demeanor HEENT: Shows normocephalic, atraumatic. Extraocular movements are intact and symmetrical. Oral cavity: Mucous membranes are moist and pink. NECK: Shows anterior throat supple without palpable lymphadenopathy noted. Swallow reflex symmetrical. CHEST: Shows normal on inspection. Breath sounds are clear bilaterally, distant but no rales or. HEART: Shows S1, S2 clear. No murmurs auscultated. ABDOMEN: Soft, nontender, nondistended, obese. No palpable organomegaly is noted. BACK: Shows spine grossly in the midline. Normal-appearing cervical lordotic curvature. There is increased thoracic kyphosis, some flattening of the lumbar lordotic curvature. Lumbar paraspinous muscles show symmetrical on inspection, on palpation shows some moderate tenderness diffusely throughout the upper, middle and lower distribution of the paraspinous muscles, but without specific trigger points, without radiation of pain. The patient has good rotational motion of the lumbar spine, both laterally as well as extension and flexion without significant difficulty. Mild tenderness over the left sacroiliac and posterior superior iliac spine but only very mild without radiation right side is nontender. EXTREMITIES: Lower extremities show deep tendon reflexes 1+ in the patellar and tendo calcaneus tendons. Motor exam is 4 on a scale of 5 with right dorsiflexion, extension, quadriceps and hamstring flexion and 4/5 on the left. Peripheral pulses are 1 posterior tibial. No peripheral edema is noted bilaterally. Lower extremities are warm and dry. 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 Patient's left shoulder shows good rotation motion as well as abduction abduction forward and rearward flexion with resistance as well as shoulder shrug, with moderate tenderness with palpation of the anterior aspect of the glenohumeral joint as well as the posterior aspect but without radiation. Right side is nontender with full range of motion as well. SKIN: Shows warm and dry, good turgor. No edema. No sores, rashes or bruising throughout. Procedure: Procedure: Options were discussed with the patient. Patient chart reviews his current medication regimen updated current review of systems updated today as well. We will proceed with a left intra-articular shoulder joint injection today with fluoroscopic guidance. Risk were discussed including but not limited to bleeding infection possibility of intravascular injection sequelae, side effects of steroid medication, exposure to fluoroscopy, and poor results regarding pain control. Patient understands wished to proceed. Patient return to clinic approximate 4 weeks for follow-up, was counseled as return appointment, activity level, and side effects of the aware of. Medication Injected: Med Injected: Patient supine position under sterile prep and drape using C-arm fluoroscopic guidance patient's left shoulder was visualized and using 25-gauge needle 1% lidocaine was used to topically anesthetized area over the glenohumeral joint on the left. Using a 22-gauge Quincke needle with stylette the joint was entered under direct fluoroscopic visualization without difficulty stylet was removed at this time 2 cc of contrast was injected with good intra-articular spread in the shoulder joint without uptake. At this time 3 cc of 0.25% bupivacaine and 80 mg Depo-Medrol was then injected into the joint. Needle was removed and sterile bandage was applied. Patient tolerated the procedure well and had no complications. Condition at Discharge: Condition at Discharge: Condition at discharge is stable, paced tolerated the procedure well and had no complications. CITLALLI NGUYEN MD Aug 08, 2021 13:38
--- NOTE | 2021-08-08 13:39 | PDOC4 ---
Procedure Note: ICD 10 Code: ICD 10 Code: M2 5.512 M1 9.012 Procedure Note: Patient was consented for left intra-articular glenohumeral shoulder joint injection with fluoroscopic guidance. Risks discussed including but not limited to bleeding infection possibility of intravascular injection sequelae spread of local anesthetic and numbness exposure fluoroscopy side effects of steroid medication and poor results regarding pain control. Patient understands wished to proceed Patient supine position under sterile prep and drape using C-arm fluoroscopic guidance patient's left shoulder was visualized and using 25-gauge needle 1% lidocaine was used to topically anesthetized area over the glenohumeral joint on the left. Using a 22-gauge Quincke needle with stylette the joint was entered under direct fluoroscopic visualization without difficulty stylet was removed at this time 2 cc of contrast was injected with good intra-articular spread in the shoulder joint without uptake. At this time 3 cc of 0.25% bupivacaine and 80 mg Depo-Medrol was then injected into the joint. Needle was removed and sterile bandage was applied. Patient tolerated the procedure well and had no complications. CITLALLI NGUYEN MD Aug 08, 2021 13:39
== END | disposition home or self-care (01) ==
LOC: PNCL 12:59
PROVIDERS: ATTEND Anesthesiology
DX: M19.012 Primary osteoarthritis, left shoulder (principal); M51.16 Intervertebral disc disorders with radiculopathy, lumbar region; M48.061 Spinal stenosis, lumbar region without neurogenic claudication; M96.1 Postlaminectomy syndrome, not elsewhere classified; M46.1 Sacroiliitis, not elsewhere classified; I48.91 Unspecified atrial fibrillation; J45.909 Unspecified asthma, uncomplicated; K21.9 Gastro-esophageal reflux disease without esophagitis; Z87.440 Personal history of urinary (tract) infections; Z79.82 Long term (current) use of aspirin; Z79.899 Other long term (current) drug therapy; Z98.890 Other specified postprocedural states; Z88.1 Allergy status to other antibiotic agents
CPT/HCPCS: 20610; 77002; J1040; J3490; Q9965

== ENCOUNTER → 2021-08-30 | Outpatient (CLI) | payer MEDICARE, OTHER ==
[2020-08-31 10:37] VITALS: BP 119/64
--- NOTE | 2021-08-30 15:35 | PDOC ---
Progress Note - Pain Clinic Date of Service: DOS: DATE: 08/30/21 TIME: 15:31 Diagnosis: Dx: Left shoulder joint pain with osteoarthritis and right rotator cuff tear Lumbar radiculopathy with lumbar degenerative disease and lumbar spinal stenosis lumbar postlaminectomy syndrome Left sacroiliitis History or Present Illness: HPI: 81-year-old male returns for follow-up status post left shoulder joint injection with 507 provement from first of 5 days to a week patient reports pain began to return down the shoulder on the left side with rotation of motion lifting items reaching over his head with his left hand raises forward and with weightbearing and repetitive motions. Patient reports difficult driving with his left hand difficulty writing or holding items and wakes him from sleep occasionally but not most nights if he sleeps on his right side patient reports his pain is a 10 on scale 10 is worse over the past week 7 on average for its least is he was doing much better with distance reaching motions pain returned again after about a week or so is back to near baseline. Patient have a new MRI we discussed with him regarding his left shoulder showing a large full-thickness supraspinatus tear extending to the junctional fibers with only some thinned and severely tendinopathic fibers potentially remaining partially attached to the anterior footprint with tendinopathy the torn tendon stump displaced medially from the footprint approximate 3 cm. Patient reports pain is sharp also dull shooting and radiating the left lateral arm as well. Patient reports a loss of motor function with significant disability from the left shoulder with rotation of motion and lifting. Physical Exam: VS: Blood pressure is 131/70 pulse 60 respirations 18 temperature is 98.0 F height is 5 feet 8 inches weight is 204 pounds PE: PHYSICAL EXAMINATION: GENERAL: The patient is awake, alert, oriented, appropriate, very pleasant in demeanor HEENT: Shows normocephalic, atraumatic. Extraocular movements are intact and symmetrical. Oral cavity: Mucous membranes moist and pink. NECK: Shows anterior throat supple without palpable lymphadenopathy noted. Swallow reflex symmetrical. CHEST: Shows normal on inspection. Breath sounds are clear bilaterally, no rales or rhonchi. HEART: Shows S1, S2 clear. No murmurs auscultated. ABDOMEN: Soft, nontender, nondistended, obese. No palpable organomegaly is noted. BACK: Shows spine grossly in the midline. Normal-appearing cervical lordotic curvature. There is slightly increased thoracic kyphosis, some minor flattening of the lumbar lordotic curvature. Lumbar paraspinous muscles show symmetrical on inspection, on palpation shows some moderate tenderness diffusely throughout the upper, middle and lower distribution of the paraspinous muscles without specific trigger points, without radiation of pain. The patient has good rotational motion of the lumbar spine, both laterally as well as extension and flexion without significant difficulty. EXTREMITIES: Lower extremities show deep tendon reflexes 1+ in the patellar and tendo calcaneus tendons. Motor exam is 4 on a scale of 5 with right dorsiflexion, extension, quadriceps and hamstring flexion and 4/5 on the left. Peripheral pulses are 1+ posterior tibial. No peripheral edema is noted bilaterally. Lower extremities are warm and dry to touch, equal in color and appearance. 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 SKIN: Shows warm and dry, good turgor. No edema. No sores, rashes or bruising throughout. Procedure: Procedure: Options were discussed with the patient. Patient chart reviews his current medication regimen updated current review of systems updated today as well. We will proceed with a left intra-articular shoulder joint injection today with fluoroscopic guidance. Risks were discussed including but not limited to bleeding infection possibility of intravascular injection sequelae, spread local anesthetic numbness, side effects steroid medication, exposure fluoroscopy and poor results regarding pain control. Patient understands wished to proceed. Patient return to clinic in approximately 4 weeks for follow-up, was counseled as return appointment, activity level, and side effect to be aware of. Medication Injected: Med Injected: Patient supine position under sterile prep and drape using C-arm fluoroscopic guidance patient's left shoulder was visualized and using 25-gauge needle 1% lidocaine was used to topically anesthetized area over the glenohumeral joint on the left. Using a 22-gauge Quincke needle with stylette the joint was entered under direct fluoroscopic visualization without difficulty stylet was removed at this time 2 cc of contrast was injected with good intra-articular spread in the shoulder joint without uptake. At this time 3 cc of 0.25% bupivacaine and 80 mg Depo-Medrol was then injected into the joint. Needle was removed and sterile bandage was applied. Patient tolerated the procedure well and had no complications. Condition at Discharge: Condition at Discharge: Condition at discharge is stable, patient tolerated the procedure well and had no complications. CITLALLI NGUYEN MD Aug 30, 2021 15:35
--- NOTE | 2021-08-30 15:35 | PDOC4 ---
Procedure Note: ICD 10 Code: ICD 10 Code: M2 5.512 M1 9.012 Procedure Note: Patient was consented for left intra-articular shoulder joint injection with fluoroscopic guidance. Risks were discussed including but not limited to: Bleeding, infection, possibility of epidural hematoma and subsequent neurological compromise, dural puncture, headaches, spinal cord and/or nerve damage, side effects of steroid medication, and poor results regarding pain control. Patient understands and wished to proceed. Patient supine position under sterile prep and drape using C-arm fluoroscopic guidance patient's left shoulder was visualized and using 25-gauge needle 1% lidocaine was used to topically anesthetized area over the glenohumeral joint on the left. Using a 22-gauge Quincke needle with stylette the joint was entered under direct fluoroscopic visualization without difficulty stylet was removed at this time 2 cc of contrast was injected with good intra-articular spread in the shoulder joint without uptake. At this time 3 cc of 0.25% bupivacaine and 80 mg Depo-Medrol was then injected into the joint. Needle was removed and sterile bandage was applied. Patient tolerated the procedure well and had no compli cations. CITLALLI NGUYEN MD Aug 30, 2021 15:35
== END | disposition home or self-care (01) ==
LOC: PNCL 15:30
PROVIDERS: ATTEND Anesthesiology
DX: M25.512 Pain in left shoulder (principal); M19.012 Primary osteoarthritis, left shoulder; M51.16 Intervertebral disc disorders with radiculopathy, lumbar region; M47.26 Other spondylosis with radiculopathy, lumbar region; M48.061 Spinal stenosis, lumbar region without neurogenic claudication; G89.29 Other chronic pain; M46.1 Sacroiliitis, not elsewhere classified; I48.91 Unspecified atrial fibrillation; J45.909 Unspecified asthma, uncomplicated; M19.90 Unspecified osteoarthritis, unspecified site; Z98.890 Other specified postprocedural states; Z79.899 Other long term (current) drug therapy; Z79.01 Long term (current) use of anticoagulants
CPT/HCPCS: 20610; 77002; J1040; J3490; Q9965

== ENCOUNTER → 2021-09-02 | Outpatient (CLI) | payer MEDICARE, OTHER ==
[2020-08-31 10:37] VITALS: BP 119/64
[~2021-09-02] MED LIST changes: -BUPIVACAINE MPF 0.25% 10 ML VIAL. ONE; -IOHEXOL 180 MG/ML 10 ML VIAL. ONE; -methylPREDNISolone ACETATE 80 MG/ML VIAL. ONE
--- NOTE | 2021-09-02 15:07 | NUR ---
Patient tolerated MRI well. VS stable: 128/93, 66, 15, 97; 149/81, 64, 96%; 135/79, 64, 96%. No arrhythmias. Biotronik rep present. PPM returned to patient's prior mode, tolerated well.
--- NOTE | 2021-09-02 17:01 | RAD ---
Examination: MRI of the left shoulder without contrast HISTORY: History of left shoulder pain COMPARISON: 06/01/2019 TECHNIQUE: Multiplanar multisequence MR imaging of the left shoulder performed without contrast. FINDINGS: The long head of the biceps tendon within the bicipital groove. The attachment of the long head the b iceps tendon to the superior labral anchor grossly appears intact. The attachment of the subscapulari s grossly appears intact. There is full-thickness tear of the supraspinatus tendon with extension of fluid in the subacromial subdeltoid bursa. Moderate degenerative changes identified in the supraspina tus, infraspinatus tendons likely tendinosis. The acromion is type II. There is mild muscle bulk loss identified in the supraspinatus muscle. The inferior aspect of the acromion abuts the superior aspec t of supraspinatus tendon. There is mild obscuration of fat in the rotator interval. The visualized l abrum grossly appears unremarkable. Moderate degenerative changes acromioclavicular joint, glenohumer al joint. IMPRESSION: 1. Full-thickness tear of the supraspinatus tendon with extension of fluid in subacromial subdeltoid bursa. 2. The inferior aspect of the acromion abuts supraspinatus tendon. Correlate for impingement. 3. Mild obscuration of fat in the interval. Correlate for adhesive capsulitis. Electronically signed by: Shubham Peck MD (09/02/2021 4:59 PM) [id number]
== END ==
LOC: MRI 13:11
PROVIDERS: ATTEND Family Medicine
DX: M75.122 Complete rotator cuff tear or rupture of left shoulder, not specified as traumatic (principal); M75.52 Bursitis of left shoulder; M19.012 Primary osteoarthritis, left shoulder; E65 Localized adiposity; M25.812 Other specified joint disorders, left shoulder
CPT/HCPCS: 73221

== ENCOUNTER → 2021-12-18 | Outpatient (CLI) | payer MEDICARE, OTHER ==
[2020-08-31 10:37] VITALS: BP 119/64
[~2021-12-18] MED LIST changes: +BUPIVACAINE MPF 0.25% 10 ML VIAL. ONE; +DEXAMETHASONE PRES.FREE 10 MG/ML VIAL. ONE; +IOHEXOL 180 MG/ML 10 ML VIAL. ONE
--- NOTE | 2021-12-18 13:48 | PDOC ---
Progress Note - Pain Clinic Date of Service: DOS: DATE: 12/18/21 TIME: 13:42 Diagnosis: Dx: Lumbar radiculopathy with lumbar degenerative disease and lumbar spinal stenosis with lumbar postlaminectomy syndrome Left sacroiliitis Left shoulder joint pain with osteoarthritis and rotator cuff tear Left knee joint pain with osteoarthritis History or Present Illness: HPI: 81-year-old male returns for follow-up last seen August 2021 patient had left shoulder joint injection and reports he did very well with that about 50% improv ement overall he has been to [place] and back in the meantime is been a lot of time on his feet and traveling patient reports his main complaint today is left knee joint pain he has had some osteoarthritis diagnosed in the past with his orthopedic doctor however has not had it treated patient reports is significant with putting weight on it specially stepping on a stair or curb putting all his weight on his left knee patient reports is worse with walking standing better with sitting or laying down but has been awakening from sleep if he lays on his left side patient reports is a 10 on scale 10 is worse over the past week 9 on average 7 its least it is a 9 today patient reports no loss of motor function but significant fatigability he notices he is limping and standing more in his right leg was beginning to make his right knee hurt patient reports still some pain in the low back but his chief complaint is his left knee. Patient reports no bowel or bladder incontinence no loss of motor function but significant fatigue in the left lower extremity. Physical Exam: VS: Blood pressure 150/79 pulse 69 respirations 18 temperature 97.8 F height is 5 feet 8 inches weight is 206 pounds. PE: PHYSICAL EXAMINATION: GENERAL: The patient is awake, alert, oriented, appropriate, very pleasant in demeanor HEENT: Shows normocephalic, atraumatic. Extraocular movements are intact and symmetrical. Oral cavity: Mucous membranes moist and pink. NECK: Shows anterior throat supple without palpable lymphadenopathy noted. Swallow reflex symmetrical. CHEST: Shows normal on inspection. Breath sounds are clear bilaterally, distant but no rales rhonchi or wheezes auscultated. HEART: Shows S1, S2 clear. No murmurs auscultated. ABDOMEN: Soft, nontender, nondistended. No palpable organomegaly is noted. BACK: Shows spine grossly in the midline. Normal-appearing cervical lordotic curvature. There is moderately increased thoracic kyphosis, some flattening of the lumbar lordotic curvature. Lumbar paraspinous muscles show symmetrical on inspection, on palpation shows some moderate tenderness diffusely throughout the upper, middle and lower distribution of the paraspinous muscles without specific trigger points, without radiation of pain. The patient has good rotational motion of the lumbar spine, both laterally as well as extension and flexion without significant difficulty. EXTREMITIES: Lower extremities show deep tendon reflexes 1+ in the patellar and tendo calcaneus tendons. Motor exam is 4 on a scale of 5 with right dorsiflexion, extension, quadriceps and hamstring flexion and 4/5 on the left. Peripheral pulses are 1+ posterior tibial. No peripheral edema is noted bilaterally. Lower extremities are warm and dry to touch, equal in color and appearance. Patient's left knee shows some moderate tenderness with palpation of the medial collateral ligament without radiation patient shows good passive range of motion of both extension and flexion without ratcheting or crepitus. Right knee shows full rotation without significant tenderness on palpation and no ratcheting or crepitus as well. SKIN: Shows warm and dry, good turgor. No edema. No sores, rashes or bruising throughout. Procedure: Procedure: Options were discussed with patient. Patient chart reviews his current medication regimen updated current review of systems updated today as well. We will proceed with a left intra-articular knee joint injection today with fluoroscopic guidance. Risk were discussed including but not limited to bleeding [place] possibility of intravascular injection and sequelae spread of local anesthetic and numbness side effects steroid medication exposure fluoroscopy and poor results regarding pain control. Patient understands wished to proceed she will return to clinic in approximately 2 weeks for follow-up, was counseled as to return appointment, activity level, and side effect to be aware of. Medication Injected: Med Injected: Under sterile prep and drape patient in supine position using C-arm fluoroscopic guidance patient's left knee wassterilely prepped and draped in usual fashion. Using C-arm fluoroscopy the medial aspect of the knee joint was identified and visualized and using 1% lidocaine 25-gauge needle of the area of the skin overlying the medial knee compartment was anesthetized. Using a 22-gauge quick ie needle with stylette the joint was entered under direct visualization without difficulty. Stylet was removed at this time 1.5 cc of contrast was then injected with good spread within the knee joint itself without washout or uptake. At this time solution containing 3 cc of 0.25 bupivacaine and 10 mg dexamethasone was then injected. Needle was withdrawn and sterile bandage was applied. Patient tolerated procedure well and had no complications. Condition at Discharge: Condition at Discharge: Condition at discharge is stable, patient tolerated procedure well and had no complications. CITLALLI NGUYEN MD Dec 18, 2021 13:48
--- NOTE | 2021-12-18 13:49 | PDOC4 ---
Procedure Note: ICD 10 Code: ICD 10 Code: M2 5.562 M1 7.12 Procedure Note: Patient was consented for left intra-articular knee joint injection with fluoroscopic guidance. Risk were discussed including but not limited to bleeding infection possibility of intravascular injection and sequelae spread of local anesthetic and numbness side effects of steroid medication exposure to fluoroscopy and poor results regarding pain control. Patient understands wished to proceed. Under sterile prep and drape patient in supine position using C-arm fluoroscopic guidance patient's left knee wassterilely prepped and draped in usual fashion. Using C-arm fluoroscopy the medial aspect of the knee joint was identified and visualized and using 1% lidocaine 25-gauge needle of the area of the skin overlying the medial knee compartment was anesthetized. Using a 22-gauge quickie needle with stylette the joint was entered under direct visualization without difficulty. Stylet was removed at this time 1.5 cc of contrast was then injected with good spread within the knee joint itself without washout or uptake. At this time solution containing 3 cc of 0.25 bupivacaine and 10 mg dexamethasone was then injected. Needle was withdrawn and sterile bandage was applied. Patient tolerated procedure well and had no complications. CITLALLI NGUYEN MD Dec 18, 2021 13:49
== END | disposition home or self-care (01) ==
LOC: PNCL 10:50
PROVIDERS: ATTEND Anesthesiology
DX: M17.12 Unilateral primary osteoarthritis, left knee (principal); I48.91 Unspecified atrial fibrillation; J45.909 Unspecified asthma, uncomplicated; K21.9 Gastro-esophageal reflux disease without esophagitis; Z79.82 Long term (current) use of aspirin; Z79.899 Other long term (current) drug therapy; Z98.890 Other specified postprocedural states; Z88.1 Allergy status to other antibiotic agents; Z88.8 Allergy status to other drugs, medicaments and biological substances
CPT/HCPCS: 20610; 77002; J1100; J3490; Q9965

== ENCOUNTER 2022-02-04 09:57 | Day surgery (SDC) | payer MEDICARE, OTHER ==
[~2022-02-04] VITALS: Ht 172.7 cm; Wt 95.4 kg
[~2022-02-04 09:57] MED LIST changes: -BUPIVACAINE MPF 0.25% 10 ML VIAL. ONE; -DEXAMETHASONE PRES.FREE 10 MG/ML VIAL. ONE; +DEXAMETHASONE SOD PHOS 4 MG/ML VIAL ONE; +EPINEPHrine VIAL 30 MG/30 ML VIAL ONE; -IOHEXOL 180 MG/ML 10 ML VIAL. ONE; +LIDOCAINE 2% PF 5 ML VIAL. ONE; +MIDAZOLAM HCL/PF 2 MG/2 ML VIAL. ONE; +ONDANSETRON PF 4 MG/2 ML VIAL. ONE; +PHENYLEPHRINE 10 MG/ML VIAL. ONE; +PROPOFOL 10 MG/ML (20ML) VIAL. IV ONE; +SEVOFLURANE 61 TO 120 MINUTES. IH ONE
[2022-02-04 10:35] VITALS: BP 153/72
[2022-02-04] MEDS ORDERED: DEXAMETHASONE SOD PHOS 4 MG/ML VIAL ONE (10:49)
[2022-02-04] MEDS ORDERED: BUPIVACAINE MPF 0.5% 30 ML VIAL. ONE (10:49)
[2022-02-04] MEDS ORDERED: LIDOCAINE 2% PF 5 ML VIAL. ONE (10:49)
[2022-02-04] MEDS ORDERED: EPINEPHrine 1 MG/ML VIAL ONE (10:49)
[2022-02-04] MEDS ORDERED: MIDAZOLAM HCL/PF 2 MG/2 ML VIAL. ONE (10:56)
[2022-02-04] MEDS ORDERED: fentaNYL PF VIAL 100 MCG/2 ML VIAL ONE (10:56)
[2022-02-04] MEDS ORDERED: IV RINGERS,LACTATED 1000ML 1,000 ML IV SCH ×2 (11:00→13:15)
[2022-02-04] MEDS ORDERED: OXYC-325 PO (13:09)
--- NOTE | 2022-02-04 13:10 | DISCH ---
DISCHARGE INSTRUCTIONS Condition on Discharge Condition on Discharge: Stable Activity After Discharge Activity Instructions for Disc: Avoid exertion, Progressive ambulation, Other ROM activity Other activity instructions: Arm to remain in sling Bathing Instructions: Shower-keep dressing dry Lifting Instructions after Dis: No heavy lifting, No pulling or pushing, Do not lift >10 pounds Exercise Instruction after Dis: Walk 30 min, 3 x per week, Exercise per therapy, Progress as tolerated Driving Instructions after Dis: Do not drive, Other, see below Weight Bearing Status after Di: Non weight bearing, Other, see below Diet after Discharge Diet after Discharge: Cardiac, Regular Additional Diet Restrictions: resume home diet Diet Texture: Regular Liquid Texture: Thin Liquid Swallowing Supervision: None needed Wound Incision Care Wound/Incision Care: Ice to area for comfort, Keep wound/cast CDI, Change kayden ssing, May get incision wet, Reinforce dressing PRN, No wound care needed Other wound/incision instructi: Okay to change dressing after 2 days Contacting the DRNoris after DC Call your doctor for: Concerns you may have Follow-Up Follow up with: Surgeon in 2-week Treatment/Equipment after DC Adaptive Equipment Issued: None SONNY WEI II, MD Feb 04, 2022 13:10
[2022-02-04] MEDS ORDERED: fentaNYL PF VIAL 100 MCG/2 ML VIAL IVP PRN ×2 (13:15)
[2022-02-04] MEDS ORDERED: HYDROmorphone 2 MG/ML INJ. IVP PRN (13:15)
[2022-02-04] MEDS ORDERED: PROCHLORPERAZINE 10 MG/2 ML VIAL. IVP PRN (13:15)
--- NOTE | 2022-02-04 13:16 | PDOC4 ---
Operative Note Operative Note Date of procedure: 02/04/2022 Surgeon: Tacho Wei Assistants: aRh Titus and Angela Gutierrez Preoperative diagnosis: Massive left rotator cuff tear Postoperative diagnosis: Same Procedure performed: Arthroscopic left shoulder rotator cuff repair Anesthesia: General plus regional nerve block Findings: 1. Glenohumeral cartilage showed some softening but was otherwise without pathology 2. Biceps tendon had ruptured, labrum intact circumferentially 3. No loose bodies 4. Massive rotator cuff tear, subscapularis and posterior rotator cuff intact Complications: None Components inserted: [employer] Helacoil anchors x3, footprint for lateral row fixation Blood loss: 10 mL Reason for procedure: Patient is a very pleasant 81-year-old gentleman who was referred to my outpatient clinic for complaints of progressive shoulder pain and dysfunction. Clinical and radiographic examination were consistent with rotator cuff tear and fairly well-preserved glenohumeral joint space. Again I had a discussion of treatment options and he wished to avoid arthroplasty. Given his changes in his supraspinatus on MRI I did discuss higher retear rate but I felt it reasonable to proceed even if only a partial repair was able to be accomplished. Description of procedure: Patient was greeted in the preoperative area by myself or the correct extremity was verified and marked. He received a regional nerve block by the anesthesiology team and was then brought back to the operating room. He was transferred gently supine to the operating room table and underwent successful induction of a general anesthetic. We then set him up in a beachchair position maintaining C-spine in neutral position, large pillow under his legs and all remaining pressure points were well-padded. Left upper extremity was prepped and draped in the usual sterile fashion with Ioban at the periphery. Standard preoperative timeout was conducted. I palpated marked surface anatomy and jose r lines for my planned portals. He has a spinal needle to localize a posterior superior portal and incised skin in accordance with this and introduced the blunt arthroscopic trocar into the glenohumeral joint followed by the camera. I then used a spinal to localize an anterosuperior portal and incised skin accordance with this. I introduced the probe and conducted my diagnostic arthroscopy with above-noted findings. I then repositioned the camera into the subacromial space and created a lateral portal under spinal localization. I spent a large amount of time with a shaver and electrocautery performing releases above and below the supraspinatus and infraspinatus tendons. He had a large amount of thick fibrotic tissue, bursa, posteriorly. After I was satisfied with my visualization I tested how well the cuff was mobile with a regular grasper and was able to mobilize the tendon adequately enough for a repair. I then placed 3 suture anchors and created an accessory anterolateral and posterolateral portals for suture management. I then shuttled the suture limbs through a simple configuration from posterior to anterior and saved 4 limbs to incorporate into my lateral row fixation from the suture anchors. The middle most sutures were saved. I then incorporated this into my lateral row fixation and impacted this into position. The tear was stable to probing gentle rotation of the arm. After this removed any loose bony debris with aspiration through the shaver and remove the excess arthroscopic fluid and instrumentation from the subacromial space. Portals were closed with simple interrupted 3-0 nylon. The shoulder was cleansed and dried and a sterile bulky dressing was applied followed by an abduction pillow sling. Patient was laid supine and transferred gently spine to the recovery cart and taken to PACU in stable and extubated condition. Postoperative plan is to discharge patient home, he will be nonweightbearing and will remain in the sling. I will see him back in 2 weeks seen him started on physical therapy TACHO WEI II, MD Feb 04, 2022 13:16
[2022-02-04] MEDS ORDERED: oxyCODONE/APAP 5/325 1 TAB TABLET PO ONE (13:30)
[2022-02-04 13:50] VITALS: BP 131/63
== END 2022-02-04 14:45 | disposition home or self-care (01) ==
LOC: SURG 09:57
PROVIDERS: ATTEND Orthopaedic Surgery Sports Medicine
DX: M75.122 Complete rotator cuff tear or rupture of left shoulder, not specified as traumatic (principal); I48.91 Unspecified atrial fibrillation; J45.909 Unspecified asthma, uncomplicated; K21.9 Gastro-esophageal reflux disease without esophagitis; M19.90 Unspecified osteoarthritis, unspecified site; Z79.82 Long term (current) use of aspirin; Z85.828 Personal history of other malignant neoplasm of skin; Z79.899 Other long term (current) drug therapy; Z98.890 Other specified postprocedural states
CPT/HCPCS: 29827; 64415; A4355; A4928; A4930; A6253; C1713; J0171; J0690; J1100; J2250; J2370; J2405; J2704; J3490; A4452; J3010